=== PATIENT | female | born 1940 | race Caucasian/White ===

== ENCOUNTER → 2018-03-13 10:35 | Outpatient (CLI) | payer MEDICARE, SELFPAY ==
--- NOTE | 2018-03-13 | DI.MG.S_ITS ---
BILATERAL DIGITAL SCREENING MAMMOGRAM 3D/2D WITH CAD: 03/13/2018 CLINICAL: Routine screening. Comparison is made to exams dated: 02/20/2017 mammogram, 01/21/2016 mammogram, and 01/14/2015 mammogram - [facility]. The tissue of both breasts is heterogeneously dense. This may lower the sensitivity of mammography. Current study was also evaluated with a Computer Aided Detection (CAD) system. No significant masses, calcifications, or other findings are seen in either breast. There has been no significant interval change. IMPRESSION: NEGATIVE There is no mammographic evidence of malignancy. A 1 year screening mammogram is recommended. This exam was interpreted at Station ID: [id number]. NOTE: For mammograms, a report in lay terms will be sent to the patient. Approximately 15% of breast malignancies will not be visualized mammographically. In the management of a palpable breast mass, a negative mammogram must not discourage biopsy of a clinically suspicious lesion. Electronically Signed By: Jaycee caraballo/alexis:03/13/2018 14:00:25 letter sent: Normal Exam ACR BI-RADS Category 1: Negative 3341F
== END ==
PROVIDERS: PCP Family Medicine; Visit Provider Family Medicine
DX: Z12.31 Encounter for screening mammogram for malignant neoplasm of breast (principal)
CPT/HCPCS: 77063; 77067

== ENCOUNTER 2018-06-22 08:30 | Outpatient (RCR) | payer MEDICARE, SELFPAY | END 2018-08-03 08:55 | LOC: SP 08:30 | PROVIDERS: PCP Family Medicine; Visit Provider Otolaryngology | DX: R49.0 Dysphonia (principal); R13.10 Dysphagia, unspecified | CPT/HCPCS: 92507; 92520; 92524; 92526; 92610 ==

== ENCOUNTER → 2018-08-15 08:53 | Outpatient (CLI) | payer MEDICARE, SELFPAY ==
[2018-08-15 09:31] LABS: Add Manual Diff / Slide Review NO; Basophils Percent Auto 2.1 % (0-2); Eosinophils Percent Auto 3.3 % (2-4); Hematocrit 43.4 % (36-46); Lymphocytes Percent Auto 30.1 % (25-40); Mean Corpuscular HGB Conc 34.6 % (30-36); Mean Corpuscular Hemoglobin 35.6 PG (26-34); Mean Corpuscular Volume 102.9 fL (80-100); Monocytes Percent Auto 9.1 % (3-14); Neutrophils Absolute Auto 2600 /uL (3000-5900); Neutrophils Percent Auto 55.4 % (50-75); Platelet Count 130 X10^3/uL (150-400); Red Blood Cell Count 4.22 X10^6/uL (4.0-5.2); Red Cell Distribution Width 14.6 % (11.6-14.8); White Blood Cell Count 4.7 X10^3/uL (4.5-11.0)
[2018-08-15 09:40] LABS: BUN Creatinine Ratio 23.3 (6-22); Blood Urea Nitrogen 14 mg/dL (7-17); Calcium 9.3 mg/dL (8.4-10.2); Carbon Dioxide 28 mmol/L (22-32); Chloride 104 mmol/L (98-107); Cholesterol 184 mg/dL (140-199); Estimated Glomerular Filt Rate > 60.0 mL/min (>60); Glucose 97 mg/dL (80-110); HDL Cholesterol 83 mg/dL (40-60); HEMOLYSIS 43 (0-50); LDL Cholesterol Calculated 84 mg/dL (<100); Sodium 142 mmol/L (137-145); Triglycerides 85 mg/dL (35-150)
== END ==
PROVIDERS: Family Provider Family Medicine; PCP Family Medicine; Visit Provider Internal Medicine Cardiovascular Disease
DX: I10 Essential (primary) hypertension (principal)
CPT/HCPCS: 36415; 80048; 80061; 85025

== ENCOUNTER → 2019-03-14 10:36 | Outpatient (CLI) | payer MEDICARE, SELFPAY ==
--- NOTE | 2019-03-14 | DI.MG.S_ITS ---
BILATERAL DIGITAL SCREENING MAMMOGRAM 3D/2D WITH CAD: 03/14/2019 CLINICAL: Routine screening. Comparison is made to exams dated: 03/13/2018 mammogram, 02/20/2017 mammogram, and 01/21/2016 mammogram - [facility]. The tissue of both breasts is heterogeneously dense. This may lower the sensitivity of mammography. Current study was also evaluated with a Computer Aided Detection (CAD) system. No significant masses, calcifications, or other findings are seen in either breast. There has been no significant interval change. IMPRESSION: NEGATIVE There is no mammographic evidence of malignancy. A 1 year screening mammogram is recommended. This exam was interpreted at Station ID: [id number]. NOTE: For mammograms, a report in lay terms will be sent to the patient. Approximately 15% of breast malignancies will not be visualized mammographically. In the management of a palpable breast mass, a negative mammogram must not discourage biopsy of a clinically suspicious lesion. Electronically Signed By: Miguel vallejo/alexis:03/14/2019 11:13:08 letter sent: Normal Exam ACR BI-RADS Category 1: Negative 3341F
== END ==
PROVIDERS: PCP Family Medicine; Visit Provider Family Medicine
DX: Z12.31 Encounter for screening mammogram for malignant neoplasm of breast (principal)
CPT/HCPCS: 77063; 77067

== ENCOUNTER → 2019-04-25 14:41 | Outpatient (CLI) | payer MEDICARE, SELFPAY ==
--- NOTE | 2019-04-25 14:48 | DI.RAD.S_ITS ---
PROCEDURE: XR ABDOMEN 1V INDICATIONS: ABDOMINAL PAIN TECHNIQUE: One view of the abdomen acquired. COMPARISON: None. FINDINGS: Surgical changes and devices: None. Bowel: Bowel gas pattern is abnormal with a mild to moderate degree of colonic obstipation and several air fluid levels over the midabdomen which appeared nonspecific, potentially a manifestation of mild ileus but also potentially reactive to the colonic obstipation adjacent to the midabdomen level. No free air seen.. Soft tissues: No suspicious abdominal calcifications. Visualized solid organ contours appear normal in size. Bones: No suspicious bony lesions. IMPRESSION: Mild to moderate colonic obstipation as discussed, no definite acute disease. Depending on the clinical status followup by CT scanning with contrast may become necessary. Dictated by: Anish Sinha M.D. on 04/25/2019 at 15:31 Approved by: Anish Sinha M.D. on 04/25/2019 at 15:32
[2019-04-25 15:11] LABS: Add Manual Diff / Slide Review NO; Basophils Absolute Auto 100 /uL (0-100); Eosinophils Absolute Auto 100 /uL (0-450); Eosinophils Percent Auto 1.7 % (2-4); Hematocrit 40.4 % (36-46); Hemoglobin 14.1 g/dL (12.0-16.0); Lymphocytes Absolute Auto 1200 /uL (1100-4500); Lymphocytes Percent Auto 25.1 % (25-40); Mean Corpuscular HGB Conc 34.9 % (30-36); Mean Corpuscular Hemoglobin 35.7 PG (26-34); Mean Corpuscular Volume 102.4 fL (80-100); Monocytes Absolute Auto 500 /uL (0-900); Monocytes Percent Auto 10.2 % (3-14); Neutrophils Absolute Auto 2900 /uL (1500-7000); Platelet Count 131 X10^3/uL (150-400); Red Blood Cell Count 3.95 X10^6/uL (4.0-5.2); Red Cell Distribution Width 15.2 % (11.6-14.8); White Blood Cell Count 4.8 X10^3/uL (4.5-11.0)
[2019-04-25 15:22] LABS: Alanine Aminotransferase 23 IU/L (9-52); Albumin 4.3 g/dL (3.5-5.0); Albumin Globulin Ratio 1.6 (1.0-2.8); Alkaline Phosphatase 76 U/L (38-126); Aspartate Aminotransferase 32 IU/L (14-36); Bilirubin Total 0.5 mg/dL (0.2-1.3); Blood Urea Nitrogen 12 mg/dL (7-17); Calcium 9.7 mg/dL (8.4-10.2); Carbon Dioxide 29 mmol/L (22-32); Chloride 103 mmol/L (98-107); Estimated Glomerular Filt Rate > 60.0 mL/min (>60); Globulin 2.7 g/dL (1.7-4.1); Glucose 99 mg/dL (80-110); HEMOLYSIS < 15 (0-50); Potassium 4.3 mmol/L (3.4-5.1); Sodium 140 mmol/L (137-145)
[2019-04-26 01:38] LABS: Vitamin B12 468 pg/mL (239-931)
== END ==
PROVIDERS: PCP Family Medicine; Visit Provider Hospitalist
DX: R14.0 Abdominal distension (gaseous) (principal); D75.89 Other specified diseases of blood and blood-forming organs
CPT/HCPCS: 36415; 74018; 80053; 82607; 85025

== ENCOUNTER → 2019-04-29 11:33 | Outpatient (CLI) | payer MEDICARE, SELFPAY ==
[2019-04-29 14:41] LABS: Occult Blood 1 Negative (Negative); Occult Blood 2 Negative (Negative)
== END ==
PROVIDERS: PCP Family Medicine; Visit Provider Hospitalist
DX: R14.0 Abdominal distension (gaseous) (principal)
CPT/HCPCS: 82270

== ENCOUNTER → 2019-05-08 12:25 | Outpatient (CLI) | payer MEDICARE, SELFPAY ==
[2019-05-08 13:26] LABS: Alanine Aminotransferase 24 IU/L (9-52); Albumin 4.3 g/dL (3.5-5.0); Albumin Globulin Ratio 1.5 (1.0-2.8); Alkaline Phosphatase 80 U/L (38-126); Aspartate Aminotransferase 24 IU/L (14-36); Bilirubin Total 0.5 mg/dL (0.2-1.3); Blood Urea Nitrogen 18 mg/dL (7-17); Calcium 9.6 mg/dL (8.4-10.2); Carbon Dioxide 30 mmol/L (22-32); Chloride 102 mmol/L (98-107); Estimated Glomerular Filt Rate > 60.0 mL/min (>60); Globulin 2.8 g/dL (1.7-4.1); Glucose 84 mg/dL (80-110); HEMOLYSIS < 15 (0-50); Potassium 4.2 mmol/L (3.4-5.1); Sodium 141 mmol/L (137-145); Total Protein 7.1 g/dL (6.3-8.2)
== END ==
PROVIDERS: PCP Family Medicine; Visit Provider Hospitalist
DX: R10.9 Unspecified abdominal pain (principal)
CPT/HCPCS: 36415; 80053

== ENCOUNTER → 2019-05-10 08:39 | Outpatient (CLI) | payer MEDICARE, SELFPAY ==
--- NOTE | 2019-05-10 08:42 | DI.US.S_ITS ---
PROCEDURE: US ABDOMEN COMPLETE INDICATIONS: RUQ PAIN TECHNIQUE: Real-time scanning was performed of the abdominal and retroperitoneal organs, with image documentation. COMPARISON: [facility], CT, ABDOMEN/PELVIS WITH CONTRAST, 03/11/2013, 9:03. [facility], CT, ABDOMEN/PELVIS WITH CONTRAST, 03/20/2008, 12:54. [facility], US, ABDOMEN COMPLETE, 03/26/2008, 8:25. FINDINGS: Liver: Liver is normal in size and homogeneous in echotexture. Gallbladder: No findings of gallstones or sludge are seen. The gallbladder wall is not thickened, measuring 3 mm or less. An phrygian cap can again be seen. 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 No specific pericholecystic fluid is seen. The sonographic Silva sign is negative. Biliary ducts: Intrahepatic bile ducts are non-dilated. Extrahepatic bile duct caliber measures 6 mm. Normal is 6-7 mm or less in diameter, or 10 mm or less post-cholecystectomy. Pancreas: Visualized portions of the pancreas are sonographically normal. Spleen: Spleen is normal in size and homogeneous in echotexture. Kidneys: Kidneys are normal in size and echotexture. Right kidney measures 11.6 cm long; left kidney measures 12.3 cm long. No hydronephrosis or nephrolithiasis. No solid masses. Aorta: Visualized aorta is normal in caliber at less than 3 cm. Iliacs: Proximal common iliac arteries are normal in caliber at less than 2.5 cm. IVC: Intrahepatic inferior vena cava is patent. Miscellaneous: No free abdominal fluid. IMPRESSION: The gallbladder demonstrates a normal sonographic appearance, with incidental note again made of a phrygian cap. No biliary dilatation is seen. Dictated by: Jorge Arriola M.D. on 05/10/2019 at 9:01 Approved by: Jorge Arriola M.D. on 05/10/2019 at 9:03
== END ==
PROVIDERS: PCP Family Medicine; Visit Provider Hospitalist
DX: R10.11 Right upper quadrant pain (principal)
CPT/HCPCS: 76700

== ENCOUNTER → 2019-05-21 11:03 | Outpatient (CLI) | payer MEDICARE, SELFPAY ==
[2019-05-21 11:47] LABS: Add Manual Diff / Slide Review NO; Basophils Absolute Auto 100 /uL (0-100); Basophils Percent Auto 2.1 % (0-2); Eosinophils Absolute Auto 200 /uL (0-450); Eosinophils Percent Auto 3.8 % (2-4); Hematocrit 40.9 % (36-46); Hemoglobin 14.1 g/dL (12.0-16.0); Lymphocytes Absolute Auto 1300 /uL (1100-4500); Lymphocytes Percent Auto 27.3 % (25-40); Mean Corpuscular HGB Conc 34.5 % (30-36); Mean Corpuscular Hemoglobin 35.3 PG (26-34); Mean Corpuscular Volume 102.2 fL (80-100); Monocytes Absolute Auto 500 /uL (0-900); Monocytes Percent Auto 11.9 % (3-14); Neutrophils Absolute Auto 2500 /uL (1500-7000); Neutrophils Percent Auto 54.9 % (50-75); Platelet Count 130 X10^3/uL (150-400); Red Blood Cell Count 4.01 X10^6/uL (4.0-5.2); Red Cell Distribution Width 14.8 % (11.6-14.8); White Blood Cell Count 4.6 X10^3/uL (4.5-11.0)
[2019-05-21 12:25] LABS: Alanine Aminotransferase 21 IU/L (9-52); Albumin 4.2 g/dL (3.5-5.0); Albumin Globulin Ratio 1.6 (1.0-2.8); Alkaline Phosphatase 76 U/L (38-126); Aspartate Aminotransferase 27 IU/L (14-36); Bilirubin Total 0.5 mg/dL (0.2-1.3); Blood Urea Nitrogen 18 mg/dL (7-17); Calcium 9.4 mg/dL (8.4-10.2); Carbon Dioxide 26 mmol/L (22-32); Chloride 103 mmol/L (98-107); Estimated Glomerular Filt Rate > 60.0 mL/min (>60); Globulin 2.6 g/dL (1.7-4.1); Glucose 93 mg/dL (80-110); HEMOLYSIS < 15 (0-50); Potassium 4.3 mmol/L (3.4-5.1); Sodium 139 mmol/L (137-145); Total Protein 6.8 g/dL (6.3-8.2)
== END ==
PROVIDERS: PCP Family Medicine; Visit Provider Hospitalist
DX: R10.9 Unspecified abdominal pain (principal)
CPT/HCPCS: 36415; 80053; 85025

== ENCOUNTER → 2019-05-24 10:02 | Outpatient (CLI) | payer MEDICARE, SELFPAY ==
--- NOTE | 2019-05-24 10:03 | DI.CT.S_ITS ---
PROCEDURE: CT ABDOMEN PELVIS W CON INDICATIONS: abdominal pain TECHNIQUE: After the administration of oral and intravenous contrast, 5 mm thick sections acquired from the diaphragms to the symphysis. 5 mm thick coronal and sagittal reformats were performed. For radiation dose reduction, the following was used: automated exposure control, adjustment of mA and/or kV according to patient size. COMPARISON: [facility], CT, ABDOMEN/PELVIS WITH CONTRAST, 03/11/2013, 9:03. [facility], CT, ABDOMEN/PELVIS WITH CONTRAST, 01/07/2012, 4:17. FINDINGS: Image quality: Excellent. A ABDOMEN: Lung bases: Lung bases are clear. Heart size is normal. Solid organs: Liver is normal in size and enhancement. Gallbladder is contracted. Biliary system is non-dilated. Pancreas enhances normally. Spleen is normal in size and enhancement. No adrenal nodules. Kidneys are normal in size and enhancement, without hydronephrosis. Peritoneum and bowel: Stomach, small bowel, and colon loops are normal in caliber and wall thickness. No free fluid or air. There is generalized colonic obstipation, right greater than left, and extending to the transverse colon. Nodes and vessels: No retroperitoneal or mesenteric adenopathy. Aorta and inferior vena cava are normal in caliber. Miscellaneous: No ventral hernias. PELVIS: Genitourinary: Bladder wall thickness is normal. Miscellaneous: No inguinal hernias or adenopathy. Right greater than left colonic obstipation extends from the abdomen into the pelvis. Bones: No suspicious bony lesions. No vertebral body compression fractures. IMPRESSION: No underlying infection or neoplasm is found. There is relatively prominent colonic obstipation extending from the abdomen into the pelvis and greater on the right than the left. There is no suspicion for focal intestinal obstruction or perforation. Dictated by: Anish Sinha M.D. on 05/24/2019 at 12:03 Approved by: Anish Sinha M.D. on 05/24/2019 at 12:05
== END ==
PROVIDERS: PCP Family Medicine; Referring Provider Physician Assistant; Visit Provider Hospitalist
DX: R10.9 Unspecified abdominal pain (principal); K59.00 Constipation, unspecified
CPT/HCPCS: 74177; Q9967

== ENCOUNTER → 2020-03-21 10:47 | Outpatient (CLI) | payer MEDICARE, SELFPAY ==
--- NOTE | 2020-03-21 | DI.MG.S_ITS ---
BILATERAL DIGITAL SCREENING MAMMOGRAM 3D/2D WITH CAD: 03/21/2020 CLINICAL: Routine screening. Comparison is made to exams dated: 03/14/2019 mammogram, 03/13/2018 mammogram, and 02/20/2017 mammogram - [facility]. The tissue of both breasts is heterogeneously dense. This may lower the sensitivity of mammography. Current study was also evaluated with a Computer Aided Detection (CAD) system. No significant masses, calcifications, or other findings are seen in either breast. There has been no significant interval change. IMPRESSION: NEGATIVE There is no mammographic evidence of malignancy. A 1 year screening mammogram is recommended. This exam was interpreted at Station ID: [id number]. NOTE: For mammograms, a report in lay terms will be sent to the patient. Approximately 15% of breast malignancies will not be visualized mammographically. In the management of a palpable breast mass, a negative mammogram must not discourage biopsy of a clinically suspicious lesion. Electronically Signed By: Miguel vallejo/alexis:03/23/2020 08:14:33 letter sent: Normal Exam ACR BI-RADS Category 1: Negative 3341F
== END ==
PROVIDERS: PCP Family Medicine; Referring Provider Family Medicine; Visit Provider Family Medicine
DX: Z12.31 Encounter for screening mammogram for malignant neoplasm of breast (principal)
CPT/HCPCS: 77063; 77067

== ENCOUNTER → 2020-05-19 16:16 | Outpatient (CLI) | payer MEDICARE, SELFPAY ==
[2020-05-19 16:37] LABS: Add Manual Diff / Slide Review NO; Basophils Absolute Auto 100 /uL (0-100); Basophils Percent Auto 1.2 % (0-2); Eosinophils Absolute Auto 100 /uL (0-450); Eosinophils Percent Auto 1.8 % (2-4); Hematocrit 41.9 % (36-46); Hemoglobin 13.8 g/dL (12.0-16.0); Lymphocytes Absolute Auto 1400 /uL (1100-4500); Mean Corpuscular Hemoglobin 34.3 PG (26-34); Mean Corpuscular Volume 103.7 fL (80-100); Monocytes Absolute Auto 400 /uL (0-900); Monocytes Percent Auto 7.6 % (3-14); Neutrophils Absolute Auto 3700 /uL (1500-7000); Neutrophils Percent Auto 65.4 % (50-75); Platelet Count 128 X10^3/uL (150-400); Red Blood Cell Count 4.04 X10^6/uL (4.0-5.2); White Blood Cell Count 5.7 X10^3/uL (4.5-11.0)
[2020-05-19 16:55] LABS: HEMOLYSIS < 15 (0-50); Potassium 3.8 mmol/L (3.4-5.1)
[2020-05-19 16:56] LABS: Alanine Aminotransferase 22 IU/L (<35); Albumin 4.1 g/dL (3.5-5.0); Albumin Globulin Ratio 1.3 (1.0-2.8); Alkaline Phosphatase 88 U/L (38-126); Aspartate Aminotransferase 29 IU/L (14-36); BUN Creatinine Ratio 26.7 (6-22); Bilirubin Total 0.4 mg/dL (0.2-1.3); Blood Urea Nitrogen 16 mg/dL (7-17); Calcium 9.2 mg/dL (8.4-10.2); Carbon Dioxide 31 mmol/L (22-32); Chloride 103 mmol/L (98-107); Estimated Glomerular Filt Rate > 60.0 mL/min (>60); Globulin 3.2 g/dL (1.7-4.1); Glucose 92 mg/dL (80-110); Sodium 138 mmol/L (137-145); Total Protein 7.3 g/dL (6.3-8.2)
[2020-05-19 17:27] LABS: TSH w/ Reflex to FT4 1.27 uIU/mL (0.47-4.68)
== END ==
PROVIDERS: PCP Family Medicine; Referring Provider Family Medicine; Visit Provider Family Medicine
DX: R53.83 Other fatigue (principal)
CPT/HCPCS: 36415; 80053; 84443; 85025

== ENCOUNTER → 2020-08-04 09:31 | Outpatient (CLI) | payer MEDICARE, SELFPAY ==
[2020-08-05 15:37] LABS: Deamidated Gliadin Ab IgA 5 units (0-19); Deamidated Gliadin Ab IgG 3 units (0-19); Immunoglobulin A,Qn 190 mg/dL (64-422); t-Transglutaminase IgA <2 U/mL (0-3)
== END ==
PROVIDERS: PCP Family Medicine; Referring Provider Internal Medicine Gastroenterology; Visit Provider Internal Medicine Gastroenterology
DX: R14.0 Abdominal distension (gaseous) (principal)
CPT/HCPCS: 36415; 82784; 83516

== ENCOUNTER → 2020-11-17 11:05 | Outpatient (CLI) | payer MEDICARE, SELFPAY ==
--- NOTE | 2020-11-17 11:06 | DI.RAD.S_ITS ---
PROCEDURE: XR T AND L SPINE 2 TO 3 VIEWS INDICATIONS: Thoracolumbar junction spine discomfort TECHNIQUE: 2 views acquired of the thoracolumbar spine. COMPARISON: [facility], CT, CT ABDOMEN PELVIS WITH CONTRAST, 02/18/2020, 10:06. MR, L-SPINE WITHOUT CONTRAST, 06/24/2009, 15:02. FINDINGS: Bones: No acute fractures or dislocations. Ptzd-cu-oxdtlpue S-shaped scoliosis. There is degenerative disc disease, sezeezgz-xh-wajquj at L1-L2, L2-L3 and L3-L4, mild at other levels. Eazlvfly-gi-wrifhe facet arthropathy at L 4-L5 and L5-S1. Visualized inferior ribs appear intact. No suspicious bony lesions. Soft tissues: No suspicious soft tissue calcifications. There is a lead-lesscardiac pacing device. IMPRESSION: 1. Scoliosis. 2. Degenerative disc and facet disease in lumbar spine. Dictated by: Abdulaziz Byrd M.D. on 11/17/2020 at 12:43 Approved by: Abdulaziz Byrd M.D. on 11/17/2020 at 12:52
== END ==
PROVIDERS: PCP Family Medicine; Referring Provider Family Medicine; Visit Provider Family Medicine
DX: M54.5 Low back pain (principal); M41.86 Other forms of scoliosis, lumbar region; M51.36 Other intervertebral disc degeneration, lumbar region; M47.816 Spondylosis without myelopathy or radiculopathy, lumbar region; M47.817 Spondylosis without myelopathy or radiculopathy, lumbosacral region
CPT/HCPCS: 72082

== ENCOUNTER → 2021-05-05 11:26 | Outpatient (CLI) | payer MEDICARE, SELFPAY ==
--- NOTE | 2021-05-05 | DI.MG.S_ITS ---
BILATERAL DIGITAL SCREENING MAMMOGRAM 3D/2D WITH CAD: 05/05/2021 CLINICAL: Routine screening. Comparison is made to exams dated: 03/21/2020 mammogram, 03/14/2019 mammogram, and 03/13/2018 mammogram - [facility]. The tissue of both breasts is heterogeneously dense. This may lower the sensitivity of mammography. Current study was also evaluated with a Computer Aided Detection (CAD) system. No significant masses, calcifications, or other findings are seen in either breast. There has been no significant interval change. IMPRESSION: NEGATIVE There is no mammographic evidence of malignancy. A 1 year screening mammogram is recommended. This exam was interpreted at Station ID: [id number]. NOTE: For mammograms, a report in lay terms will be sent to the patient. Approximately 15% of breast malignancies will not be visualized mammographically. In the management of a palpable breast mass, a negative mammogram must not discourage biopsy of a clinically suspicious lesion. Electronically Signed By: Gisell dasilva/alexis:05/05/2021 15:10:38 letter sent: Normal Exam ACR BI-RADS Category 1: Negative 3341F
== END ==
PROVIDERS: PCP Family Medicine; Referring Provider Family Medicine; Visit Provider Family Medicine
DX: Z12.31 Encounter for screening mammogram for malignant neoplasm of breast (principal)
CPT/HCPCS: 77063; 77067

== ENCOUNTER → 2021-06-09 13:42 | Outpatient (CLI) | payer MEDICARE, SELFPAY ==
--- NOTE | 2021-06-09 13:48 | DI.MRI.S_ITS ---
PROCEDURE: MR LUMBAR SPINE WO CON INDICATIONS: Low back pain, unspecified TECHNIQUE: Noncontrast sagittal T1 spin echo and T2 fast echo, sagittal STIR, axial T1 and T2 fast spin echo through the lumbar spine. In cases with scoliosis, additional coronal T2 fast spin echo may be performed. COMPARISON: None. FINDINGS: There is a mild S-shaped scoliosis in the lumbar spine. Right lateral listhesis of L3 with respect to L4 measuring approximately 1 cm. Retrolisthesis of L2 with respect L3 measuring approximately 3 mm. Mild anterior wedging of the L1 vertebral body without associated edema. Vertebral body heights otherwise maintained. No suspicious focal marrow signal abnormality. Discogenic marrow edema at the opposing endplates of L3-L4 and to a lesser degree at L1-L2. Normal position and appearance of the conus. Prevertebral and paraspinous soft tissues are within normal limits. The included unenhanced retroperitoneal visceral structures demonstrate no acute finding. T12-L1: No spinal canal or neural foraminal stenosis. L1-L2: No spinal canal or neural foraminal stenosis. L2-L3: Retrolisthesis of L2 flattens the ventral thecal sac with mild displacement of the descending L3 nerve roots in both subarticular zones. Mild neural foraminal narrowing, left greater than right, due to foraminal components of a diffuse disc bulge and facet hypertrophy. L3-L4: Disc bulge flattens the ventral thecal sac without significant mass effect upon the traversing L4 nerve roots. Foraminal components of the disc bulge and facet hypertrophy combine to produce moderate left and mild right neural foraminal stenosis. L4-L5: Diffuse disc bulge with a superimposed broad-based posterior disc protrusion flattens the ventral thecal sac. Mild displacement of the descending L5 nerve roots within both subarticular zones. Foraminal components of the disc bulge and facet hypertrophy contribute to mild bilateral neural foraminal stenosis. L5-S1: Diffuse disc bulge without mass effect upon the traversing S1 nerve roots. No significant neural foraminal narrowing. IMPRESSION: Overall mild multilevel multifactorial degenerative changes with no convincing evidence of focal nerve root impingement. Marrow edema at the opposing L3-L4 and L1-L2 endplates represent potential sources of nonradicular axial back pain along with multilevel facet hypertrophy. Dictated by: Mitesh Young M.D. on 06/09/2021 at 15:44 Approved by: Mitesh Young M.D. on 06/09/2021 at 15:48
== END ==
PROVIDERS: PCP Family Medicine; Referring Provider Physical Medicine & Rehabilitation Pain Medicine; Visit Provider Physical Medicine & Rehabilitation Pain Medicine
DX: M54.50 Low back pain, unspecified (principal); R93.7 Abnormal findings on diagnostic imaging of other parts of musculoskeletal system
CPT/HCPCS: 72148

== ENCOUNTER 2021-06-18 11:51 | Emergency (ER) | payer MEDICARE, SELFPAY ==
[2021-06-18] VITALS (12 sets, daily range): BP systolic 130–166; BP diastolic 63–79; PULSE 67–84; RESP 14–25; TEMP 36.6; O2SAT 73–100; BMI 23.6
--- NOTE | 2021-06-18 12:04 | DI.RAD.S_ITS ---
PROCEDURE: XR CHEST 1V INDICATIONS: chest pain TECHNIQUE: One view of the chest was acquired. COMPARISON: [facility], , CHEST 2 VIEW, 04/19/2017, 11:06. FINDINGS: Surgical changes and devices: None. Lungs and pleura: There is hyperinflation of the lungs with flattening of the hemidiaphragms compatible with COPD. There are linear opacities in the left lung base likely representing scarring or atelectasis. No acute consolidation. No pleural effusions or pneumothorax. Mediastinum: Mediastinal contours appear normal. Heart size is normal. Bones and chest wall: No suspicious bony lesions. Overlying soft tissues appear unremarkable. IMPRESSION: 1. No definite acute cardiopulmonary disease. 2. Probable atelectasis or scarring in the left lung base. 3. Findings compatible with COPD redemonstrated. Dictated by: Liborio Greene M.D. on 06/18/2021 at 13:57 Approved by: Liborio Greene M.D. on 06/18/2021 at 14:00
[2021-06-18 12:17] LABS: Add Manual Diff / Slide Review NO; Basophils Absolute Auto 100 /uL (0-100); Basophils Percent Auto 1.6 % (0-2); Eosinophils Absolute Auto 100 /uL (0-450); Eosinophils Percent Auto 1.5 % (2-4); Hematocrit 43.3 % (36-46); Hemoglobin 14.5 g/dL (12.0-16.0); Lymphocytes Absolute Auto 1500 /uL (1100-4500); Lymphocytes Percent Auto 25.1 % (25-40); Mean Corpuscular HGB Conc 33.6 % (30-36); Mean Corpuscular Hemoglobin 35.2 PG (26-34); Monocytes Absolute Auto 600 /uL (0-900); Monocytes Percent Auto 9.1 % (3-14); Neutrophils Absolute Auto 3800 /uL (1500-7000); Neutrophils Percent Auto 62.7 % (50-75); Platelet Count 129 X10^3/uL (150-400); Red Blood Cell Count 4.12 X10^6/uL (4.0-5.2); Red Cell Distribution Width 15.4 % (11.6-14.8); White Blood Cell Count 6.1 X10^3/uL (4.5-11.0)
[2021-06-18 12:25] LABS: Alanine Aminotransferase 26 IU/L (<35); Albumin 4.7 g/dL (3.5-5.0); Albumin Globulin Ratio 1.6 (1.0-2.8); Alkaline Phosphatase 84 U/L (38-126); Aspartate Aminotransferase 34 IU/L (14-36); BUN Creatinine Ratio 30.2 (6-22); Bilirubin Total 0.6 mg/dL (0.2-1.3); Blood Urea Nitrogen 16 mg/dL (7-17); Calcium 9.7 mg/dL (8.4-10.2); Carbon Dioxide 27 mmol/L (22-32); Chloride 103 mmol/L (98-107); Creatine Kinase 109 U/L (30-135); Estimated Glomerular Filt Rate > 60.0 mL/min (>60); Globulin 2.9 g/dL (1.7-4.1); Glucose 96 mg/dL (80-110); HEMOLYSIS < 15 (0-50); Lipase 84 U/L (23-300); Potassium 4.2 mmol/L (3.4-5.1); Sodium 139 mmol/L (137-145); Total Protein 7.6 g/dL (6.3-8.2)
[2021-06-18 12:37] LABS: Troponin I < 0.012 ng/mL (0.01-0.034)
[2021-06-18 12:40] LABS: CKMB % Relative Index 1.1 % (1.5-5.0); Creatine Kinase MB 1.23 ng/mL (<2.37)
--- NOTE | 2021-06-18 14:42 | PC.NURSE ---
Patient reports that according to her [employer] that she does not have heart failure and a vague report of Afib. Has been having chest fullness with SOB at rest, irregular beats, and palpitations for last month but acutely worse today.
--- NOTE | 2021-06-18 17:31 | ED_ITS ---
HPI - Chest Pain General Chief Complaint: Chest Pain Stated Complaint: Heavy Chest,SOB, Light Headed Time Seen by Provider: 06/18/21 17:31 Source: patient Mode of arrival: Ambulatory Limitations: no limitations History of Present Illness HPI narrative: 81-year-old woman with a history of hypertension, anxiety and in somnia presents with exertional dyspnea, chest pain and a sense that she is having more frequent PVCs today. She does not describe overt pain but does note that the exertional dyspnea particularly when walking up stairs has been more noticeable in the last month. She does not describe orthopnea however she has sleep apnea so tends to sleep on her side. She has not had any creased lower extremity edema. She does note that she has a chronic cough that she has been dealing with for a number of years and today is having recurrent clearing of her throat consistent with her complaints of postnasal drip. She has had no fevers she has chronic diffuse abdominal pain from chronic obstipation (from which she has found no significant relief despite multiple consultations with different gastroenterologists). Related Data Home Medications Medication Instructions Recorded Confirmed polyvinyl alcohol-povidone 0.5 1 drp OPHTH PRN PRN #0 03/09/17 11/17/20 %-0.6 % eye drops (Artificial Tears (polyvinyl alcohol/povidone)) sodium chloride 0.65 % nasal spray 67.5 ml NS HSP PRN #0 03/09/17 11/17/20 aerosol (Saline Nose) sodium chloride 2 % eye drops 15 ml HS #0 03/09/17 11/17/20 (Ifeoma 128) multivitamin (Multiple Vitamins) 2 tab PO QWEEK #0 tab 02/26/19 11/17/20 magnesium 200 mg tablet 400 mg PO QDAY #0 tab 04/25/19 11/17/20 cholecalciferol (vitamin D3) 50 50 mcg PO DAILY 03/11/20 11/17/20 mcg (2,000 unit) capsule melatonin 5 mg capsule mg PO 03/11/20 11/17/20 Previous Rx's Medication Instructions Recorded nortriptyline 10 mg capsule 10 mg PO BEDTIME #90 cap 02/26/19 alprazolam 0.5 mg tablet 0.5 mg PO BEDTIME PRN #30 tab 05/19/20 lisinopril 10 mg tablet 10 mg PO DAILY #90 tab 08/10/20 oxybutynin chloride 5 mg tablet 5 mg PO BID #180 tab 11/26/20 Allergies Allergy/AdvReac Type Severity Reaction Status Date / Time antipyrine [ANTIPYRINE] Allergy Mild Verified 06/18/21 11:56 clavulanic acid Allergy Mild Verified 06/18/21 11:56 [CLAVULANIC ACID] fluconazole [FLUCONAZOLE] Allergy Mild HIVES Verified 06/18/21 11:56 dexamethasone [From Maxitrol] Allergy Unknown Verified 06/18/21 11:56 polymyxin B [From Maxitrol] Allergy Unknown Verified 06/18/21 11:56 benzocaine [From Auralgan] AdvReac Severe Blisters Verified 06/18/21 11:56 glycerin [From Auralgan] AdvReac Severe Blisters Verified 06/18/21 11:56 Sulfa (Sulfonamide AdvReac Severe HEADACHE,, Verified 06/18/21 11:56 Antibiotics) EYES [SULFA (SULFONAMIDE SWOLLEN ANTIBIOTICS)] hydrocodone [HYDROCODONE] AdvReac Mild HEADACHE Verified 06/18/21 11:56 meperidine [MEPERIDINE] AdvReac Mild VOMITTING Verified 06/18/21 11:56 neomycin [NEOMYCIN] AdvReac Mild PUFFY EYES Verified 06/18/21 11:56 Review of Systems Review of Systems Narrative: Remainder of complete review of systems is otherwise unremarkable except for that included in the HPI. 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 Osteoarthritis of right hip Otitis externa Partial retinal detachment of left eye Raynaud's syndrome Recurrent cold sores Scoliosis Shingles Sleep apnea TMJ dysfunction Urinary incontinence, urge Vaginal atrophy Surgical History History of bladder suspension procedure (1997) History of cataract removal with insertion of prosthetic lens (01/2016) History of colonoscopy (05/15/06) History of colonoscopy (04/30/08) History of colonoscopy (01/06/11) History of colonoscopy with polypectomy (1997) History of colonoscopy with polypectomy (2002) History of inguinal hernia repair (01/07/12) History of left inguinal hernia repair (02/25/16) History of mandibular surgery (10/21/09) History of mandibular surgery (1999) History of nasal septoplasty (2003) History of rectal surgery (1999) History of removal of cyst (1960) History of surgical procedure on eye proper using laser (2010) History of third molar tooth extraction (1963) Status post dilation and curettage (1965) Status post epidural steroid injection (2008) Status post hysterectomy with oophorectomy (1990) Status post left foot surgery (1993) Status post left foot surgery (09/01/10) Status post left foot surgery (12/27/13) Status post nasal surgery (1999) Status post nasal surgery (2004) Status post tonsillectomy and adenoidectomy (~1946) Social History Smoking Status: Never smoker Smoking Status: Never smoker alcohol intake frequency: holidays/special occasions only Substance Use Type: does not use Exam Narrative Exam Narrative: General: Healthy appearing, in no acute distress. Able to give a complete and coherent history. Well-nourished well-developed HEENT: Moist mucous membranes, normal sclera with reactive pupils, mild posterior pharynx erythema and cobblestoning Neck: No JVD, supple Respiratory: Lungs are clear to auscultation, no wheezing no rales no rhonchi. Full and symmetrical air movement. She does have a mild dry cough and does continually clear her throat. Cardiac: Regular rate and rhythm, occasional PVC noted on telemetry, murmurs no bruits Abdomen: Soft, nontender, good bowel tones, no flank pain Skin: Warm and dry, no rashes Neurologic: Grossly neurologically intact with no obvious asymmetries or abn ormalities Extremities: No trauma, well perfused, no edema Psych: Cooperative, appropriate insight and affect Initial Vital Signs Initial Vital Signs: Vital Signs Temperature 97.8 F 06/18/21 11:56 Pulse Rate 84 06/18/21 11:56 Respiratory Rate 14 06/18/21 11:56 Blood Pressure 140/69 06/18/21 11:56 Pulse Oximetry 98 06/18/21 11:56 Course Orders Ordered: ED Orders 06/18/21 12:00 Complete Blood Count AUTO DIFF Stat Comprehensive Metabolic Panel Stat Lipase Stat Troponin & CK Cardiac Panel Stat 06/18/21 12:04 XR chest 1V Stat EKG-12 Lead Stat Vital Signs Vital signs: Vital Signs - 8 hr 06/18/21 11:56 06/18/21 14:31 06/18/21 14:32 Temperature 97.8 F Pulse Rate 84 67 72 Respiratory Rate 14 18 Blood Pressure 140/69 166/79 H Pulse Oximetry 98 73 L 98 06/18/21 14:36 06/18/21 15:00 06/18/21 15:30 Temperature Pulse Rate 74 69 70 Respiratory Rate 16 18 15 Blood Pressure 154/78 H 130/72 133/70 Pulse Oximetry 100 100 97 06/18/21 16:02 06/18/21 16:03 06/18/21 16:30 Temperature Pulse Rate 81 79 77 Respiratory Rate 22 19 17 Blood Pressure 163/75 H Pulse Oximetry 96 99 98 06/18/21 17:00 Temperature Pulse Rate 74 Respiratory Rate 19 Blood Pressure 141/63 H Pulse Oximetry 98 MDM - Chest Pain Lab Data Result diagrams: 06/18/21 12:00 06/18/21 12:00 Labs: Lab Results 06/18/21 06/18/21 Range/Units 12:00 12:00 WBC 6.1 (4.5-11.0) X10^3/uL RBC 4.12 (4.0-5.2) X10^6/uL Hgb 14.5 (12.0-16.0) g/dL Hct 43.3 (36-46) % MCV 105.0 H (80-100) fL MCH 35.2 H (26-34) PG MCHC 33.6 (30-36) % RDW 15.4 H (11.6-14.8) % Plt Count 129 L (150-400) X10^3/uL Neut % (Auto) 62.7 (50-75) % Lymph % (Auto) 25.1 (25-40) % Gila % (Auto) 9.1 (3-14) % Eos % (Auto) 1.5 L (2-4) % Baso % (Auto) 1.6 (0-2) % Neut # (Auto) 3800 (5717-0994) /uL Lymph # (Auto) 1500 (8587-7837) /uL Gila # (Auto) 600 (0-900) /uL Eos # (Auto) 100 (0-450) /uL Baso # (Auto) 100 (0-100) /uL Sodium 139 (137-145) mmol/L Potassium 4.2 (3.4-5.1) mmol/L Chloride 103 (98-107) mmol/L Carbon Dioxide 27 (22-32) mmol/L BUN 16 (7-17) mg/dL Creatinine 0.53 (0.52-1.04) mg/dL Estimated GFR > 60.0 (>60) mL/min BUN/Creatinine Ratio 30.2 H (6-22) Glucose 96 (80-110) mg/dL Calcium 9.7 (8.4-10.2) mg/dL Total Bilirubin 0.6 (0.2-1.3) mg/dL AST 34 (14-36) IU/L ALT 26 (<35) IU/L Alkaline Phosphatase 84 (38-126) U/L Total Creatine Kinase 109 (30-135) U/L CK-MB (CK-2) 1.23 (<2.37) ng/mL CK-MB (CK-2) Rel Index 1.1 L (1.5-5.0) % Troponin I < 0.012 (0.01-0.034) ng/mL Total Protein 7.6 (6.3-8.2) g/dL Albumin 4.7 (3.5-5.0) g/dL Globulin 2.9 (1.7-4.1) g/dL Albumin/Globulin Ratio 1.6 (1.0-2.8) Lipase 84 (23-300) U/L Imaging Data Chest x-ray: Radiologist's Impression: FINDINGS:? ? Surgical changes and devices:? None.? ? Lungs and pleura:? There is hyperinflation of the lungs with flattening of the hemidiaphragms compatible with COPD.? There are linear opacities in the left lung base likely representing scarring or atelectasis.? No acute consolidation.? No pleural effusions or pneumothorax.? ? Mediastinum:? Mediastinal contours appear normal.? Heart size is normal.? ? Bones and chest wall:? No suspicious bony lesions.? Overlying soft tissues appear unremarkable.? ? IMPRESSION:? ? 1. No definite acute cardiopulmonary disease. ? 2. Probable atelectasis or scarring in the left lung base. ? 3. Findings compatible with COPD redemonstrated. ? ? Dictated by: Liborio Greene M.D. on 06/18/2021 at 13:57? ?? MDM Narrative Medical decision making narrative: 81-year-old woman with complaints of exertional dyspnea and frequent PVCs today also noticing some central chest pressure without actual pain. She is also noticing frequent PVCs, she has had increased postnasal drip and is clearing her throat frequently and also deals with a chronic cough. Her chest x-ray suggested diagnosis of COPD 1 that I do not think has been officially made for her. I believe that that does deserve more workup as an outpatient but at this time she is not showing any signs or symptoms of congestive heart failure, pulmonary embolism, acute asthma, acute coronary syndrome or myocardial infarction or any type of infection. All of the se findings are reviewed with her. She is having frequent PVCs of which she is aware. No signs of other more concerning pathology. She is safe for home discharge Discharge Plan Departure Patient Disposition: Home Clinical Impression: Exertional dyspnea, Post-nasal drip, Chronic cough, Frequent unifocal PVCs Instructions: DI for Shortness of Breath, DI for Premature Ventricular Beats Activity Restrictions/Additional Instructions: Thank you for coming in today I am sorry that you continue to have this chest tightness and shortness of breath. With your workup today, I did not find a life-threatening explanation for this. There is no evidence of heart attack or heart attack like syndrome. You are having PVCs and that is the irregularity you are noticing. This is not a life-threatening diagnosis. I am finding no evidence of pneumonia, collapsed lung or infection It may be that your postnasal drip is contributing to your chronic cough and together they are contributing to your exertional dyspnea. I would recommend that you follow-up with Dr. Staton to see if he has any suggestions regarding additional outpatient lung workup. Similarly, please keep your routine appointment with your resource management planner. If you have symptoms worsen or your developing new issues, please feel free to return to the emergency department Prescriptions: No Action sodium chloride [Saline Nose] 45 ML aerosol,spray 67.5 ml NS HSP PRNQty: 0 RF: 0 polyvinyl alcohol-povidone [Artificial Tears(pvalch-povid)] 15 ML drops 1 drp OPHTH PRN PRNQty: 0 RF: 0 sodium chloride [Ifeoma 128] 15 ML drops 15 ml HS Qty: 0 RF: 0 multivitamin [Multiple Vitamins] tablet 2 tab PO QWEEK Qty: 0 RF: 0 magnesium 200 mg tablet 400 mg PO QDAY Qty: 0 RF: 0 lisinopril 10 mg tablet 10 mg PO DAILY Qty: 90 RF: 2 oxybutynin chloride 5 mg tablet 5 mg PO BID Qty: 180 RF: 2 alprazolam 0.5 mg tablet 0.5 mg PO BEDTIME PRN (Reason: sleep) Qty: 30 RF: 2 melatonin 5 mg capsule PO RF: 0 cholecalciferol (vitamin D3) 50 mcg (2,000 unit) capsule 50 mcg PO DAILY RF: 0 nortriptyline 10 mg capsule 10 mg PO BEDTIME Qty: 90 RF: 3 Referrals: Chad Staton, [Primary Care Provider] -
== END 2021-06-18 18:19 | disposition home or self-care (01) ==
PROVIDERS: Emergency Provider Emergency Medicine; PCP Family Medicine
DX: R06.09 Other forms of dyspnea (principal); R09.82 Postnasal drip; R05.3 Chronic cough; I49.3 Ventricular premature depolarization; R07.89 Other chest pain
CPT/HCPCS: 36415; 71045; 80053; 82550; 82553; 83690; 84484; 85025; 93005; 93010; 99283; 99284

== ENCOUNTER → 2021-08-11 13:59 | Outpatient (CLI) | payer MEDICARE, SELFPAY ==
[2021-08-11 15:13] LABS: COVID19 -Nasal RAPID Negative (Negative)
== END ==
PROVIDERS: PCP Family Medicine; Referring Provider Internal Medicine; Visit Provider Internal Medicine
DX: Z20.822 Contact with and (suspected) exposure to COVID-19 (principal)
CPT/HCPCS: 87635; C9803

== ENCOUNTER → 2021-08-12 08:46 | Outpatient (CLI) | payer MEDICARE, SELFPAY ==
--- NOTE | 2021-08-18 10:12 | PM.PFT.1 ---
Pulmonary Function Test Referral & Results Date Patient Seen: 08/12/21 Requesting provider: Shell Alvarez Results: The spirometry demonstrates an FVC of 3.99 L which is 128% of predicted. The FEV1 was measured at 2.83 L which is 121% of predicted. The FEV1/FVC ratio was 71 which is 95% of predicted. Following the administration of bronchodilator there was a 32% improvement in FEF 25-75% Lung volumes show an SVC of 3.89 L which is 127% of predicted. The diffusing capacity was measured at 15.25 which is 51% of predicted. No hemoglobin value was provided, so no correction for potential anemia could be made, if appropriate. The maximum voluntary ventilation was normal Interpretation: This study demonstrates normal spirometry but reduced diffusing capacity suggesting disease at the capillary alveolar level Compared to PFTs performed in April 2017, diffusing capacity was normal on previous study as was spirometry so this is significant change from previous
== END ==
PROVIDERS: PCP Family Medicine; Referring Provider Internal Medicine Pulmonary Disease; Visit Provider Internal Medicine Pulmonary Disease
DX: R05.9 Cough, unspecified (principal); J98.4 Other disorders of lung; J98.8 Other specified respiratory disorders
CPT/HCPCS: 94060; 94726; 94729

== ENCOUNTER → 2021-08-19 14:47 | Outpatient (CLI) | payer MEDICARE, SELFPAY ==
--- NOTE | 2021-08-19 | DI.CT.S_ITS ---
PROCEDURE: CT CHEST HIGH RESOLUTION INDICATIONS: Cough, unspecified TECHNIQUE: Noncontrast 1.0 and 5.0 mm thick contiguous axial sections from the pulmonary apex to the posterior costophrenic angles, with 7 mm thick coronal and sagittal MIP reformats. 1 mm thick dynamic expiratory images acquired through the upper, mid, and lower lungs. 1.0 mm thick axial sections acquired from the rosy to the posterior costophrenic angles in the prone end-inspiration position. For radiation dose reduction, the following was used: automated exposure control, adjustment of mA and/or kV according to patient size. COMPARISON: [facility], CR, XR CHEST 1V, 06/18/2021, 12:54. FINDINGS: Image quality: Excellent. Lungs: Minimal dependent streaky opacity which partly persists on the prone sequences. This most likely represents scarring or atelectasis. No significant acute airspace opacity. No significant reticular thickening. No honeycombing. No bronchiectasis. The airways are clear. Tiny mucous plugs for example in the right lower lobe, (3/187). No significant air trapping. No mass or significant pulmonary nodules. Pleura: No pleural effusions or pneumothorax. Mediastinum: Heart size is normal. Trace pericardial fluid. No mediastinal or hilar adenopathy identified. Thoracic aorta and central pulmonary arteries are normal in size. Esophagus is normal in caliber. Bones and chest wall: No suspicious bony lesions. No vertebral body compression fractures. No axillary or supraclavicular adenopathy. Thyroid gland is heterogeneous. Abdomen: Visualized upper abdominal solid organs and bowel loops appear normal. IMPRESSION: 1. No interstitial lung disease demonstrated. Minimal scarring or atelectasis at the lung bases. 2. A few tiny areas of distal mucus airway plugging. Dictated by: Javier Bruner M.D. on 08/20/2021 at 8:44 Approved by: Javier Bruner M.D. on 08/20/2021 at 8:53
--- NOTE | 2021-08-25 13:02 | PC.NURSE ---
Called pt to let her know that Dr. Watts had placed addendum in pt's medical record. No further questions.
== END ==
PROVIDERS: PCP Family Medicine; Referring Provider Internal Medicine Pulmonary Disease; Visit Provider Internal Medicine Pulmonary Disease
DX: R05.9 Cough, unspecified (principal)
CPT/HCPCS: 71250

== ENCOUNTER → 2022-05-17 11:11 | Outpatient (CLI) | payer MEDICARE, SELFPAY ==
--- NOTE | 2022-05-17 11:12 | DI.MG.S_ITS ---
BILATERAL DIGITAL SCREENING MAMMOGRAM 3D/2D WITH CAD: 05/17/2022 CLINICAL: Routine screening. Comparison is made to exams dated: 05/05/2021 mammogram, 03/21/2020 mammogram, and 03/14/2019 mammogram - [facility]. Both breasts are heterogeneously dense, which may obscure small masses (category c / 51-75% glandular tissue). Current study was also evaluated with a Computer Aided Detection (CAD) system. No significant masses, calcifications, or other findings are seen in either breast. There has been no significant interval change. IMPRESSION: NEGATIVE There is no mammographic evidence of malignancy. A 1 year screening mammogram is recommended. Based on the Tyrer Cuzick model (a risk assessment model) the patient's lifetime risk is 1.2% and her 10 year risk is 0.0%. According to the ACR, ACS, and NCCN guidelines, an annual breast MRI exam along with mammogram is recommended if the patient's lifetime risk is 20% or greater. This exam was interpreted at Station ID: [id number]. NOTE: For mammograms, a report in lay terms will be sent to the patient. Approximately 15% of breast malignancies will not be visualized mammographically. In the management of a palpable breast mass, a negative mammogram must not discourage biopsy of a clinically suspicious lesion. Electronically Signed By: Carl tovar/alexis:05/17/2022 12:47:46 letter sent: Normal Exam ACR BI-RADS Category 1: Negative [id number]
== END ==
PROVIDERS: PCP Family Medicine; Referring Provider Family Medicine; Visit Provider Family Medicine
DX: Z12.31 Encounter for screening mammogram for malignant neoplasm of breast (principal)
CPT/HCPCS: 77063; 77067

== ENCOUNTER → 2022-09-09 10:02 | Outpatient (CLI) | payer MEDICARE, SELFPAY ==
[2022-09-09 11:15] LABS: Add Manual Diff / Slide Review NO; Basophils Absolute Auto 100 /uL (0-100); Basophils Percent Auto 1.5 % (0-2); Eosinophils Absolute Auto 100 /uL (0-450); Eosinophils Percent Auto 2.4 % (2-4); Hematocrit 41.2 % (36-46); Lymphocytes Absolute Auto 1200 /uL (1100-4500); Mean Corpuscular Hemoglobin 35.5 PG (26-34); Mean Corpuscular Volume 104.6 fL (80-100); Monocytes Absolute Auto 400 /uL (0-900); Monocytes Percent Auto 9.9 % (3-14); Neutrophils Absolute Auto 2600 /uL (1500-7000); Neutrophils Percent Auto 59.2 % (50-75); Platelet Count 118 X10^3/uL (150-400); Red Blood Cell Count 3.94 X10^6/uL (4.0-5.2); Red Cell Distribution Width 15.7 % (11.6-14.8); White Blood Cell Count 4.4 X10^3/uL (4.5-11.0)
[2022-09-09 11:47] LABS: Alanine Aminotransferase 27 IU/L (<35); Albumin 4.5 g/dL (3.5-5.0); Albumin Globulin Ratio 1.5 (1.0-2.8); Alkaline Phosphatase 75 U/L (38-126); Aspartate Aminotransferase 39 IU/L (14-36); BUN Creatinine Ratio 21.6 (6-22); Bilirubin Total 0.6 mg/dL (0.2-1.3); Blood Urea Nitrogen 11 mg/dL (7-17); Calcium 9.2 mg/dL (8.4-10.2); Carbon Dioxide 28 mmol/L (22-32); Chloride 104 mmol/L (98-107); Estimated Glomerular Filt Rate > 60 mL/min (>60); Glucose 101 mg/dL (80-110); HEMOLYSIS < 15 (0-50); Potassium 3.7 mmol/L (3.4-5.1); Sodium 141 mmol/L (137-145); Total Protein 7.5 g/dL (6.3-8.2)
[2022-09-09 12:04] LABS: Vitamin D 25 Hydroxy (D3) 44.7 ng/mL (30.0-100.0)
[2022-09-09 12:21] LABS: TSH w/ Reflex to FT4 0.99 uIU/mL (0.47-4.68)
[2022-09-09 12:37] LABS: Vitamin B12 893 pg/mL (239-931)
== END ==
PROVIDERS: PCP Family Medicine; Referring Provider Family Medicine; Visit Provider Family Medicine
DX: D75.89 Other specified diseases of blood and blood-forming organs (principal); I10 Essential (primary) hypertension; R42 Dizziness and giddiness; E55.9 Vitamin D deficiency, unspecified
CPT/HCPCS: 36415; 80053; 82306; 82607; 84443; 85025

== ENCOUNTER → 2022-09-13 13:12 | Outpatient (CLI) | payer MEDICARE, SELFPAY | PROVIDERS: PCP Family Medicine; Visit Provider Family Medicine | DX: N89.8 Other specified noninflammatory disorders of vagina (principal); N93.9 Abnormal uterine and vaginal bleeding, unspecified | CPT/HCPCS: 87086; 87210 ==

== ENCOUNTER → 2023-01-26 14:04 | Outpatient (CLI) | payer MEDICARE, SELFPAY ==
[2023-01-27 13:08] LABS: Candida species Negative (Negative); Gardnerella vaginalis Negative (Negative); Trichomoas vaginalis Negative (Negative)
== END ==
PROVIDERS: PCP Family Medicine; Visit Provider Physician Assistant Medical
DX: N89.8 Other specified noninflammatory disorders of vagina (principal)
CPT/HCPCS: 87480; 87510; 87660

== ENCOUNTER → 2023-03-29 15:16 | Outpatient (CLI) | payer MEDICARE, SELFPAY ==
--- NOTE | 2023-03-29 15:17 | DI.CT.S_ITS ---
PROCEDURE: CT HEAD/BRAIN WO CON INDICATIONS: progressive ataxic gait TECHNIQUE: Noncontrast 4.5 mm thick angled axial sections acquired from the foramen magnum to the vertex, with coronal and sagittal reformats. For radiation dose reduction, the following was used: automated exposure control, adjustment of mA and/or kV according to patient size. COMPARISON: None. FINDINGS: Image quality: This examination is limited by involuntary motion artifact. Mild streak artifact can be seen through the skull base. CSF spaces: Basal cisterns are patent. No extra-axial fluid collections. The ventricles are symmetric in size and shape. Brain: No intracranial bleeds or masses. There is cerebral volume loss for age, with resultant ventricular and sulcal prominence. There are periventricular and deep white matter chronic small vessel ischemic changes. There is intracranial internal carotid artery atherosclerosis. Skull and face: Calvarium and visualized facial bones appear intact, without suspicious lesions. Sinuses: Visualized sinuses and mastoids are clear. IMPRESSION: Noncontrast head CT within normal limits for age. Dictated by: Jorge Arriola M.D. on 03/29/2023 at 14:46 Approved by: Jorge Arriola M.D. on 03/29/2023 at 14:47
== END ==
PROVIDERS: PCP Family Medicine; Referring Provider Family Medicine; Visit Provider Family Medicine
DX: R26.0 Ataxic gait (principal); R26.81 Unsteadiness on feet
CPT/HCPCS: 70450

== ENCOUNTER → 2023-05-25 15:42 | Outpatient (CLI) | payer MEDICARE, SELFPAY ==
--- NOTE | 2023-05-25 | DI.MG.S_ITS ---
BILATERAL DIGITAL SCREENING MAMMOGRAM 3D/2D WITH CAD: 05/25/2023 CLINICAL: Routine screening. Comparison is made to exams dated: 05/17/2022 mammogram, 05/05/2021 mammogram, and 03/21/2020 mammogram - [facility]. Both breasts are heterogeneously dense, which may obscure small masses (category c / 51-75% glandular tissue). Current study was also evaluated with a Computer Aided Detection (CAD) system. No significant masses, calcifications, or other findings are seen in either breast. There has been no significant interval change. IMPRESSION: NEGATIVE There is no mammographic evidence of malignancy. A 1 year screening mammogram is recommended. Based on the Tyrer Cuzick model (a risk assessment model) the patient's lifetime risk is 0.9% and her 10 year risk is 0.0%. According to the ACR, ACS, and NCCN guidelines, an annual breast MRI exam along with mammogram is recommended if the patient's lifetime risk is 20% or greater. This exam was interpreted at Station ID: [id number]. NOTE: For mammograms, a report in lay terms will be sent to the patient. Approximately 15% of breast malignancies will not be visualized mammographically. In the management of a palpable breast mass, a negative mammogram must not discourage biopsy of a clinically suspicious lesion. Electronically Signed By: Keith cr/alexis:05/26/2023 11:03:14 letter sent: Normal Exam ACR BI-RADS Category 1: Negative [id number]
== END ==
PROVIDERS: Family Provider Family Medicine; PCP Family Medicine; Referring Provider Family Medicine; Visit Provider Family Medicine
DX: Z12.31 Encounter for screening mammogram for malignant neoplasm of breast (principal)
CPT/HCPCS: 77063; 77067

== ENCOUNTER → 2023-07-13 14:35 | Outpatient (CLI) | payer MEDICARE, SELFPAY | PROVIDERS: Family Provider Family Medicine; PCP Family Medicine; Visit Provider Physician Assistant Medical | DX: N89.8 Other specified noninflammatory disorders of vagina (principal) | CPT/HCPCS: 87070; 87205 ==

== ENCOUNTER 2023-07-26 09:45 | Outpatient (RCR) | payer MEDICARE, SELFPAY ==
--- NOTE | 2023-04-24 17:43 | PT.OIE ---
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 Blepharitis Bursitis of right hip Chronic constipation Colon polyps (1997) COPD (chronic obstructive pulmonary disease) DDD (degenerative disc disease), lumbar Degeneration of meniscus of left knee Dry eyes Frequent sinus infections Frequent UTI Fungal ear infection Ganglion Hearing loss Hemorrhage of pelvic artery History of urinary tract infection Incomplete emptying of bladder Insomnia Insomnia Lumbar disc herniation Lymphocytic colitis Migraines Gallegos's neuroma of left foot Nail fungus Nasal hemorrhage (1999) 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 Osteoarthritis of right hip Overactive bladder Partial retinal detachment of left eye Raynaud's syndrome Recurrent cold sores Scoliosis Sleep apnea Stress incontinence TMJ dysfunction Urinary incontinence, urge Vaginal atrophy Vaginal bleeding Past Surgical History (Last Reviewed 03/23/23 @ 11:23 by Chad Staton DO) History of bladder suspension procedure (1997) History of cataract removal with insertion of prosthetic lens (01/2016) History of colonoscopy (05/15/06) History of colonoscopy (04/30/08) History of colonoscopy (01/06/11) History of colonoscopy with polypectomy (1997) History of colonoscopy with polypectomy (2002) History of inguinal hernia repair (01/07/12) History of left inguinal hernia repair (02/25/16) History of mandibular surgery (10/21/09) History of mandibular surgery (1999) History of nasal septoplasty (2003) History of rectal surgery (1999) History of removal of cyst (1960) History of surgical procedure on eye proper using laser (2010) History of third molar tooth extraction (1963) Status post dilation and curettage (1965) Status post epidural steroid injection (2008) Status post hysterectomy with oophorectomy (1990) Status post left foot surgery (1993) Status post left foot surgery (09/01/10) Status post left foot surgery (12/27/13) Status post nasal surgery (1999) Status post nasal surgery (2004) Status post tonsillectomy and adenoidectomy (~1946) Visit Care Team Role Provider Type Chad Staton DO Attending Provider Physician Family Provider Primary Care Provider Referring Provider Specialty: Family Practice Address: [address] [place] [address], [id number] Email: [email or web address] Physical Therapy Initial Evaluation PT-OP-A Visit Information Start: 04/24/23 17:22 Freq: Status: Active Protocol: Document 04/24/23 16:35 DCW (Rec: 04/24/23 17:34 DCW [id number]) Out-Patient Physical Therapy Visit Information Visit Information Visit Type Initial Evaluation Visit Start Time 16:35 Visit Stop Time 17:15 Total Visit Minutes 40 Visit Number 1 Number of JACKHAMMER OPERATOR Visits 0 Evaluation Information Evaluation Date 04/24/23 PT-OP-B Current Condition Start: 04/24/23 17:22 Freq: Status: Active Protocol: Document 04/24/23 16:35 DCW (Rec: 04/24/23 17:34 DCW [id number]) Current Condition History of Current Condition Onset Date Two year history Current Complaints Fear of falling, unsteadiness, repeated falls History of Current Condition Pt is an 83 year old female presenting with a two year history of worsening balance and repeated falls. Pt reports that she has not yet transitioned to using any assistive devices, but admits that she uses aaron, rails, and furniture as often as possible when up walking. Pt reports that with her three most recent falls, two were caused by catching her foot on something or trying to step over an object, however her most recent one, she was in an elevator, the doors opened, and I just fell backwards through the air, I don't know what happened. Admits to having a significant, worsening fear of falling. Additionally, her brother was diagnosed with Parkinson's Disease two years ago, and his first symptom was worsening balance, so she is understandably scared of this due to her recent falls. Prior Treatments and Tests Head CT: IMPRESSION: Noncontrast head CT within normal limits for age. per Jorge Arriola M.D. on 03/29 Treatment Goals Patient/Caregiver Goals Decrease fear of falling and improve stability PT-OP-C Subjective Start: 04/24/23 17:22 Freq: Status: Active Protocol: Document 04/24/23 16:35 DCW (Rec: 04/24/23 17:34 DC [id number]) OP-PT Subjective Patient Comments Patient Comments I was just visiting my son, who has a new baby, and I was carrying the baby, and came upon thee steps without railing. I had to give him back and hold onto my son to get down the stairs. Patient Reported Progress Worse Patient Questionnaires ABC- Activity Specific Balance Confidence Scale ABC Score 64.38% ABC Functional Impairment 20 to <40% Impaired (Score 61- 80) PT-OP-D Balance Start: 04/24/23 17:22 Freq: Status: Active Protocol: Document 04/24/23 16:35 DCW (Rec: 04/24/23 17:34 DC [id number]) OP-PT Balance Assessment Sitting Balance Static Sitting Balance Ability Normal Dynamic Sitting Balance Ability Normal Standing Balance Static Standing Balance Ability Fair Dynamic Standing Balance Ability Poor Device Used None Balance Tests Eason Balance Test Eason Balance Test Score 46/56 Eason Impairment Rating 1 to 19% Impaired (Score 45-55 ) Eason Balance Assessment Evaluation Sitting to Standing Ability Independent w/out Hands Unsupported Stance Safely- 2 minutes Sitting Unsupported, Feet on Floor Safely- 2 minutes Standing to Sitting Ability Safely, Minimal Hand Use Transfer Ability Safely, Minimal Hand Use Unsupported Stance- Eyes Closed Safely, 10 seconds Unsupported Stance- Eyes Open Independent, 1 minute Reaching Forward Standing Safely, 5 inches Pick- Up Object From Floor Independent/Safe Look Behind Shoulder - Standing Shifts Weight Unilateral Turning 360 Degrees Turns slowly, but safely Unsupported Stance, Alternating Feet on (I)- 8 Steps in > 20 secs Stair Unsupported Tandem Stance Small Step- 30 seconds Unilateral Leg Stance Lifts Leg/Unable to Hold Total Score Eason Total Score (out of 56 points) 46 Eason Impairment Rating 1 to 19% Impaired (Score 45-55 ) Villalobos Fall Scale Copyright Permission PT-OP-E Functional Tests Start: 04/24/23 17:22 Freq: Status: Active Protocol: Document 04/24/23 16:35 DCW (Rec: 04/24/23 17:34 DC [id number]) Functional Tests Dynamic Gait Index (DGI) Score 16/24 DGI Impairment Rating 20 to <40% Impaired (Score 15- 19) Timed Up and Go (TUG) Score 14.27 Comments Three-trial average (15.46, 14 .02, 13.32) PT-OP-M Strength Start: 04/24/23 17:22 Freq: Status: Active Protocol: Document 04/24/23 16:35 DCW (Rec: 04/24/23 17:34 DCW [id number]) Hip Strength Hip Manual Muscle Testing Right Flexion (L2) 4- Good- Abduction 4- Good- Adduction 4- Good- Left Flexion (L2) 4- Good- Abduction 4- Good- Adduction 4- Good- Knee Strength Knee Manual Muscle Testing Right Flexion (S2) 4+ Good+ Extension (L3) 4+ Good+ Left Flexion (S2) 4+ Good+ Extension (L3) 4+ Good+ Ankle/Foot Strength Ankle and Foot Manual Muscle Testing Right Dorsiflexion (L4) 4+ Good+ Left Dorsiflexion (L4) 4+ Good+ PT-OP-T Assessment and Plan Start: 04/24/23 17:22 Freq: Status: Active Protocol: Document 04/24/23 16:35 DCW (Rec: 04/24/23 17:43 DCW [id number]) Physical Therapy Assessment Rehab Potential Rehabilitation Potential Good Evaluation Complexity Number of Personal Factors/Comorbidities 1-2 Number of Body Systems Impaired 1-2 Clinical Presentation at Evaluation Unstable Impairments Impairments Balance,Functional Activities, Functional Mobility,Strength Goals Two Impairment DGI score (16/24) places pt into a high falls-risk category Penitentiary Goal (LTG) Pt to improve DGI score by at least 4 points to 20/24 in order to demonstrate a decrease in falls risk LTG Duration 07/03/23 One Impairment Pt does not have an appropriate home exercise program Short Term Goal (STG) Pt to be independent and compliant with an appropriate HEP STG Duration 05/25/23 Assessment Summary Assessment Pt presents with signs and symptoms consistent with referring diagnosis. Pt tests as a high falls risk, per DGI score of 16/24. Pt additionally scores 14/27 on the TUG, which also suggests an increased risk of falling. Pt appears to struggle more with balance when distracted with various tasks, such as head turns or obstacles. Pt should benefit from skilled therapy focusing on balance and gait training, dynamic challenges, hip strengthening, and training for stability on uneven/compliant surfaces. Physical Therapy Plan Frequency and Duration Frequency of Treatment 2x/Week Plan of Care Start Date 04/24/23 Plan of Care End Date 07/03/23 Therapeutic Interventions Therapeutic Interventions Balance Training,Home Exercise Program,Manual Therapy, Neuromuscular Re-education, Patient/Caregiver Education, Self-Care/Home Management,Soft Tissue Mobilization, Therapeutic Activities, Therapeutic Exercises, Vestibular Rehabilitation Next Visit Focus/Plan Next Note Type Treatment Note Next Visit Plan Dynamic balance challenges, hip strengthening
--- NOTE | 2023-04-24 17:44 | PT.OPPOC ---
Physical, Occupational & Speech Therapy At [facility] Current Diagnoses Unsteadiness on feet (04/24/23) Repeated falls (04/24/23) Dizziness and giddiness (04/24/23) Visit Care Team Role Provider Type Chad Staton DO Attending Provider Physician Family Provider Primary Care Provider Referring Provider Specialty: Family Practice Address: [address] [place] [address], [facility] Email: [email or web address] Plan Of Care PT-OP-T Assessment and Plan Start: 04/24/23 17:22 Freq: Status: Active Protocol: Document 04/24/23 16:35 DCW (Rec: 04/24/23 17:43 DCW [id number]) Physical Therapy Assessment Rehab Potential Rehabilitation Potential Good Evaluation Complexity Number of Personal Factors/Comorbidities 1-2 Number of Body Systems Impaired 1-2 Clinical Presentation at Evaluation Unstable Impairments Impairments Balance,Functional Activities, Functional Mobility,Strength Goals Two Impairment DGI score (16/24) places pt into a high falls-risk category Half-Way Goal (LTG) Pt to improve DGI score by at least 4 points to 20/24 in order to demonstrate a decrease in falls risk LTG Duration 07/03/23 One Impairment Pt does not have an appropriate home exercise program Short Term Goal (STG) Pt to be independent and compliant with an appropriate HEP STG Duration 05/25/23 Assessment Summary Assessment Pt presents with signs and symptoms consistent with referring diagnosis. Pt tests as a high falls risk, per DGI score of 16/24. Pt additionally scores 14/27 on the TUG, which also suggests an increased risk of falling. Pt appears to struggle more with balance when distracted with various tasks, such as head turns or obstacles. Pt should benefit from skilled therapy focusing on balance and gait training, dynamic challenges, hip strengthening, and training for stability on uneven/compliant surfaces. Physical Therapy Plan Frequency and Duration Frequency of Treatment 2x/Week Plan of Care Start Date 04/24/23 Plan of Care End Date 07/03/23 Therapeutic Interventions Therapeutic Interventions Balance Training,Home Exercise Program,Manual Therapy, Neuromuscular Re-education, Patient/Caregiver Education, Self-Care/Home Management,Soft Tissue Mobilization, Therapeutic Activities, Therapeutic Exercises, Vestibular Rehabilitation Next Visit Focus/Plan Next Note Type Treatment Note Next Visit Plan Dynamic balance challenges, hip strengthening Plan of Care Dates Plan of Care Start Date 04/24/23 Plan of Care End Date 07/03/23 Electronically Signed by: Gen White, PT 04/24/23 1059 If you are in agreement with this Plan of Care, please return a signed and dated copy. I have reviewed this Plan of Care and certify that the skilled therapy services above are required to meet the patient?s needs. Physician Signature Date Printed Name and Credentials Clinical Instructor Signature Printed Name and Credentials
--- NOTE | 2023-04-28 16:00 | PT.OTN ---
Current Diagnoses Unsteadiness on feet (04/28/23) Repeated falls (04/28/23) Dizziness and giddiness (04/28/23) Physical Therapy Treatment Note PT-OP-A Visit Information Start: 04/24/23 17:22 Freq: Status: Active Protocol: Document 04/28/23 15:15 DCW (Rec: 04/28/23 16:00 DCW [id number]) Out-Patient Physical Therapy Visit Information Visit Information Visit Type Treatment Note Visit Start Time 15:15 Visit Stop Time 16:00 Total Visit Minutes 45 Visit Number 2 Number of BOXING TRAINER Visits 0 Evaluation Information Evaluation Date 04/24/23 PT-OP-B Current Condition Start: 04/24/23 17:22 Freq: Status: Active Protocol: Document 04/24/23 16:35 DCW (Rec: 04/24/23 17:34 DCW [id number]) Current Condition History of Current Condition Onset Date Two year history Current Complaints Fear of falling, unsteadiness, repeated falls History of Current Condition Pt is an 83 year old female presenting with a two year history of worsening balance and repeated falls. Pt reports that she has not yet transitioned to using any assistive devices, but admits that she uses aaron, rails, and furniture as often as possible when up walking. Pt reports that with her three most recent falls, two were caused by catching her foot on something or trying to step over an object, however her most recent one, she was in an elevator, the doors opened, and I just fell backwards through the air, I don't know what happened. Admits to having a significant, worsening fear of falling. Additionally, her brother was diagnosed with Parkinson's Disease two years ago, and his first symptom was worsening balance, so she is understandably scared of this due to her recent falls. Prior Treatments and Tests Head CT: IMPRESSION: Noncontrast head CT within normal limits for age. per Jorge Arriola M.D. on 03/29 Treatment Goals Patient/Caregiver Goals Decrease fear of falling and improve stability PT-OP-C Subjective Start: 04/24/23 17:22 Freq: Status: Active Protocol: Document 04/28/23 15:15 DCW (Rec: 04/28/23 16:00 DCW [id number]) OP-PT Subjective Patient Comments Patient Comments Pt reports she is doing fairly well today. PT-OP-D Balance Start: 04/24/23 17:22 Freq: Status: Active Protocol: Document 04/24/23 16:35 DCW (Rec: 04/24/23 17:34 DCW [id number]) OP-PT Balance Assessment Sitting Balance Static Sitting Balance Ability Normal Dynamic Sitting Balance Ability Normal Standing Balance Static Standing Balance Ability Fair Dynamic Standing Balance Ability Poor Device Used None Balance Tests Eason Balance Test Eason Balance Test Score 46/56 Eason Impairment Rating 1 to 19% Impaired (Score 45-55 ) Eason Balance Assessment Evaluation Sitting to Standing Ability Independent w/out Hands Unsupported Stance Safely- 2 minutes Sitting Unsupported, Feet on Floor Safely- 2 minutes Standing to Sitting Ability Safely, Minimal Hand Use Transfer Ability Safely, Minimal Hand Use Unsupported Stance- Eyes Closed Safely, 10 seconds Unsupported Stance- Eyes Open Independent, 1 minute Reaching Forward Standing Safely, 5 inches Pick- Up Object From Floor Independent/Safe Look Behind Shoulder - Standing Shifts Weight Unilateral Turning 360 Degrees Turns slowly, but safely Unsupported Stance, Alternating Feet on (I)- 8 Steps in > 20 secs Stair Unsupported Tandem Stance Small Step- 30 seconds Unilateral Leg Stance Lifts Leg/Unable to Hold Total Score Eason Total Score (out of 56 points) 46 Eason Impairment Rating 1 to 19% Impaired (Score 45-55 ) Villalobos Fall Scale Copyright Permission PT-OP-E Functional Tests Start: 04/24/23 17:22 Freq: Status: Active Protocol: Document 04/24/23 16:35 DCW (Rec: 04/24/23 17:34 DCW [id number]) Functional Tests Dynamic Gait Index (DGI) Score 16/24 DGI Impairment Rating 20 to <40% Impaired (Score 15- 19) Timed Up and Go (TUG) Score 14.27 Comments Three-trial average (15.46, 14 .02, 13.32) PT-OP-M Strength Start: 04/24/23 17:22 Freq: Status: Active Protocol: Document 04/24/23 16:35 DCW (Rec: 04/24/23 17:34 DCW [id number]) Hip Strength Hip Manual Muscle Testing Right Flexion (L2) 4- Good- Abduction 4- Good- Adduction 4- Good- Left Flexion (L2) 4- Good- Abduction 4- Good- Adduction 4- Good- Knee Strength Knee Manual Muscle Testing Right Flexion (S2) 4+ Good+ Extension (L3) 4+ Good+ Left Flexion (S2) 4+ Good+ Extension (L3) 4+ Good+ Ankle/Foot Strength Ankle and Foot Manual Muscle Testing Right Dorsiflexion (L4) 4+ Good+ Left Dorsiflexion (L4) 4+ Good+ PT-OP-Q Treatments Start: 04/24/23 17:22 Freq: Status: Active Protocol: Document 04/28/23 15:15 DCW (Rec: 04/28/23 16:00 DCW [id number]) Gym Equipment Shuttle Balance Red Details WBOS, Staggered Neuro Re-Education Treatment Balance Activities SLS Details SLS Equipment // bars Hallway Ambulation Details Headturns, retro ambulation Comments Metronome 90 bpm Hurdles Details Hurdles Comments Fwd, Side-stepping Foam Stance Details EO/EC Surface Blue Foam Tandem Details Tandem Ambulation Equipment // bars PT-OP-T Assessment and Plan Start: 04/24/23 17:22 Freq: Status: Active Protocol: Document 04/28/23 15:15 DCW (Rec: 04/28/23 16:00 [facility] [id number]) Physical Therapy Assessment Impairments Impairments Balance,Functional Activities, Functional Mobility,Strength Goals Two Impairment DGI score (16/24) places pt into a high falls-risk category Mcfp Goal (LTG) Pt to improve DGI score by at least 4 points to 20/24 in order to demonstrate a decrease in falls risk LTG Duration 07/03/23 One Impairment Pt does not have an appropriate home exercise program Short Term Goal (STG) Pt to be independent and compliant with an appropriate HEP STG Duration 05/25/23 Assessment Summary Assessment Pt did very well today adjusting to various balance challenges, able to perform all requested activities, no real reliance on upper extremities for support after first few attempts. Had some slight difficulty with head turns to 90 bpm metronome, resulted in some path deviation. Physical Therapy Plan Frequency and Duration Frequency of Treatment 2x/Week Plan of Care Start Date 04/24/23 Plan of Care End Date 07/03/23 Therapeutic Interventions Therapeutic Interventions Balance Training,Home Exercise Program,Manual Therapy, Neuromuscular Re-education, Patient/Caregiver Education, Self-Care/Home Management,Soft Tissue Mobilization, Therapeutic Activities, Therapeutic Exercises, Vestibular Rehabilitation Next Visit Focus/Plan Next Note Type Treatment Note Next Visit Plan Dynamic balance challenges, hip strengthening
--- NOTE | 2023-05-02 11:46 | PT.OTN ---
Current Diagnoses Unsteadiness on feet (05/02/23) Repeated falls (05/02/23) Dizziness and giddiness (05/02/23) Physical Therapy Treatment Note PT-OP-A Visit Information Start: 04/24/23 17:22 Freq: Status: Active Protocol: Document 05/02/23 11:00 DCW (Rec: 05/02/23 11:46 DCW [id number]) Out-Patient Physical Therapy Visit Information Visit Information Visit Type Treatment Note Visit Start Time 11:00 Visit Stop Time 11:45 Total Visit Minutes 45 Visit Number 3 Number of PRODUCTION CLERKS SUPERVISOR Visits 0 Evaluation Information Evaluation Date 04/24/23 PT-OP-B Current Condition Start: 04/24/23 17:22 Freq: Status: Active Protocol: Document 04/24/23 16:35 DCW (Rec: 04/24/23 17:34 DCW [id number]) Current Condition History of Current Condition Onset Date Two year history Current Complaints Fear of falling, unsteadiness, repeated falls History of Current Condition Pt is an 83 year old female presenting with a two year history of worsening balance and repeated falls. Pt reports that she has not yet transitioned to using any assistive devices, but admits that she uses aaron, rails, and furniture as often as possible when up walking. Pt reports that with her three most recent falls, two were caused by catching her foot on something or trying to step over an object, however her most recent one, she was in an elevator, the doors opened, and I just fell backwards through the air, I don't know what happened. Admits to having a significant, worsening fear of falling. Additionally, her brother was diagnosed with Parkinson's Disease two years ago, and his first symptom was worsening balance, so she is understandably scared of this due to her recent falls. Prior Treatments and Tests Head CT: IMPRESSION: Noncontrast head CT within normal limits for age. per Jorge Arriola M.D. on 03/29 Treatment Goals Patient/Caregiver Goals Decrease fear of falling and improve stability PT-OP-C Subjective Start: 04/24/23 17:22 Freq: Status: Active Protocol: Document 05/02/23 11:00 DCW (Rec: 05/02/23 11:46 DCW [id number]) OP-PT Subjective Patient Comments Patient Comments Pt has returned to her 3x/week water aerobics/exercise class , feels good with it. PT-OP-D Balance Start: 04/24/23 17:22 Freq: Status: Active Protocol: Document 04/24/23 16:35 DCW (Rec: 04/24/23 17:34 DCW [id number]) OP-PT Balance Assessment Sitting Balance Static Sitting Balance Ability Normal Dynamic Sitting Balance Ability Normal Standing Balance Static Standing Balance Ability Fair Dynamic Standing Balance Ability Poor Device Used None Balance Tests Eason Balance Test Eason Balance Test Score 46/56 Eason Impairment Rating 1 to 19% Impaired (Score 45-55 ) Eason Balance Assessment Evaluation Sitting to Standing Ability Independent w/out Hands Unsupported Stance Safely- 2 minutes Sitting Unsupported, Feet on Floor Safely- 2 minutes Standing to Sitting Ability Safely, Minimal Hand Use Transfer Ability Safely, Minimal Hand Use Unsupported Stance- Eyes Closed Safely, 10 seconds Unsupported Stance- Eyes Open Independent, 1 minute Reaching Forward Standing Safely, 5 inches Pick- Up Object From Floor Independent/Safe Look Behind Shoulder - Standing Shifts Weight Unilateral Turning 360 Degrees Turns slowly, but safely Unsupported Stance, Alternating Feet on (I)- 8 Steps in > 20 secs Stair Unsupported Tandem Stance Small Step- 30 seconds Unilateral Leg Stance Lifts Leg/Unable to Hold Total Score Eason Total Score (out of 56 points) 46 Eason Impairment Rating 1 to 19% Impaired (Score 45-55 ) Villalobos Fall Scale Copyright Permission PT-OP-E Functional Tests Start: 04/24/23 17:22 Freq: Status: Active Protocol: Document 04/24/23 16:35 DCW (Rec: 04/24/23 17:34 DCW [id number]) Functional Tests Dynamic Gait Index (DGI) Score 16/24 DGI Impairment Rating 20 to <40% Impaired (Score 15- 19) Timed Up and Go (TUG) Score 14.27 Comments Three-trial average (15.46, 14 .02, 13.32) PT-OP-M Strength Start: 04/24/23 17:22 Freq: Status: Active Protocol: Document 04/24/23 16:35 DCW (Rec: 04/24/23 17:34 DCW [id number]) Hip Strength Hip Manual Muscle Testing Right Flexion (L2) 4- Good- Abduction 4- Good- Adduction 4- Good- Left Flexion (L2) 4- Good- Abduction 4- Good- Adduction 4- Good- Knee Strength Knee Manual Muscle Testing Right Flexion (S2) 4+ Good+ Extension (L3) 4+ Good+ Left Flexion (S2) 4+ Good+ Extension (L3) 4+ Good+ Ankle/Foot Strength Ankle and Foot Manual Muscle Testing Right Dorsiflexion (L4) 4+ Good+ Left Dorsiflexion (L4) 4+ Good+ PT-OP-Q Treatments Start: 04/24/23 17:22 Freq: Status: Active Protocol: Document 05/02/23 11:00 DCW (Rec: 05/02/23 11:46 DCW [id number]) Gym Equipment Shuttle Balance Red Details WBOS, Staggered, Lateral weight shift Neuro Re-Education Treatment Balance Activities BOSU Details BOSU Comments EO, X1 Ball/cone transfers Details Ball/cone transfers Hallway Ambulation Details Headturns, retro ambulation Comments Metronome 90 bpm Hurdles Details Hurdles Comments Fwd, Side-stepping Foam Stance Details NBOS EO/EC Surface Blue Foam Tandem Details Tandem Ambulation Equipment // bars PT-OP-T Assessment and Plan Start: 04/24/23 17:22 Freq: Status: Active Protocol: Document 05/02/23 11:00 DCW (Rec: 05/02/23 11:46 DCW [id number]) Physical Therapy Assessment Impairments Impairments Balance,Functional Activities, Functional Mobility,Strength Goals Two Impairment DGI score (16/24) places pt into a high falls-risk category Detention Goal (LTG) Pt to improve DGI score by at least 4 points to 20/24 in order to demonstrate a decrease in falls risk LTG Duration 07/03/23 One Impairment Pt does not have an appropriate home exercise program Short Term Goal (STG) Pt to be independent and compliant with an appropriate HEP STG Duration 05/25/23 Assessment Summary Assessment Pt did better with head turns today, feeling better with most challenges compared to last week. Physical Therapy Plan Frequency and Duration Frequency of Treatment 2x/Week Plan of Care Start Date 04/24/23 Plan of Care End Date 07/03/23 Therapeutic Interventions Therapeutic Interventions Balance Training,Home Exercise Program,Manual Therapy, Neuromuscular Re-education, Patient/Caregiver Education, Self-Care/Home Management,Soft Tissue Mobilization, Therapeutic Activities, Therapeutic Exercises, Vestibular Rehabilitation Next Visit Focus/Plan Next Note Type Treatment Note Next Visit Plan Dynamic balance challenges, hip strengthening
--- NOTE | 2023-05-10 12:49 | PT.OTN ---
Current Diagnoses Unsteadiness on feet (05/10/23) Repeated falls (05/10/23) Dizziness and giddiness (05/10/23) Physical Therapy Treatment Note PT-OP-A Visit Information Start: 04/24/23 17:22 Freq: Status: Active Protocol: Document 05/10/23 11:47 SW (Rec: 05/10/23 12:49 SW [id number]) Out-Patient Physical Therapy Visit Information Visit Information Visit Type Treatment Note Visit Start Time 11:47 Visit Stop Time 12:30 Total Visit Minutes 43 Visit Number 4 Number of CAGE SHIFT MANAGER Visits 1 PT-OP-B Current Condition Start: 04/24/23 17:22 Freq: Status: Active Protocol: Document 04/24/23 16:35 DCW (Rec: 04/24/23 17:34 DCW [id number]) Current Condition History of Current Condition Onset Date Two year history Current Complaints Fear of falling, unsteadiness, repeated falls History of Current Condition Pt is an 83 year old female presenting with a two year history of worsening balance and repeated falls. Pt reports that she has not yet transitioned to using any assistive devices, but admits that she uses aaron, rails, and furniture as often as possible when up walking. Pt reports that with her three most recent falls, two were caused by catching her foot on something or trying to step over an object, however her most recent one, she was in an elevator, the doors opened, and I just fell backwards through the air, I don't know what happened. Admits to having a significant, worsening fear of falling. Additionally, her brother was diagnosed with Parkinson's Disease two years ago, and his first symptom was worsening balance, so she is understandably scared of this due to her recent falls. Prior Treatments and Tests Head CT: IMPRESSION: Noncontrast head CT within normal limits for age. per Jorge Arriola M.D. on 03/29 Treatment Goals Patient/Caregiver Goals Decrease fear of falling and improve stability PT-OP-C Subjective Start: 04/24/23 17:22 Freq: Status: Active Protocol: Document 05/10/23 11:47 SW (Rec: 05/10/23 12:49 SW [id number]) OP-PT Subjective Patient Comments Patient Comments Pt reports doing about the same. Pt water aerobics class is going well. Reports her and her would like to install a chair to go up the stairs and a grab bar in their shower, looking for recommendations for a professional panel installer for their tile shower. PT-OP-D Balance Start: 04/24/23 17:22 Freq: Status: Active Protocol: Document 04/24/23 16:35 DCW (Rec: 04/24/23 17:34 DCW [id number]) OP-PT Balance Assessment Sitting Balance Static Sitting Balance Ability Normal Dynamic Sitting Balance Ability Normal Standing Balance Static Standing Balance Ability Fair Dynamic Standing Balance Ability Poor Device Used None Balance Tests Eason Balance Test Eason Balance Test Score 46/56 Eason Impairment Rating 1 to 19% Impaired (Score 45-55 ) Eason Balance Assessment Evaluation Sitting to Standing Ability Independent w/out Hands Unsupported Stance Safely- 2 minutes Sitting Unsupported, Feet on Floor Safely- 2 minutes Standing to Sitting Ability Safely, Minimal Hand Use Transfer Ability Safely, Minimal Hand Use Unsupported Stance- Eyes Closed Safely, 10 seconds Unsupported Stance- Eyes Open Independent, 1 minute Reaching Forward Standing Safely, 5 inches Pick- Up Object From Floor Independent/Safe Look Behind Shoulder - Standing Shifts Weight Unilateral Turning 360 Degrees Turns slowly, but safely Unsupported Stance, Alternating Feet on (I)- 8 Steps in > 20 secs Stair Unsupported Tandem Stance Small Step- 30 seconds Unilateral Leg Stance Lifts Leg/Unable to Hold Total Score Eason Total Score (out of 56 points) 46 Eason Impairment Rating 1 to 19% Impaired (Score 45-55 ) Villalobos Fall Scale Copyright Permission PT-OP-E Functional Tests Start: 04/24/23 17:22 Freq: Status: Active Protocol: Document 04/24/23 16:35 DCW (Rec: 04/24/23 17:34 DCW [id number]) Functional Tests Dynamic Gait Index (DGI) Score 16/24 DGI Impairment Rating 20 to <40% Impaired (Score 15- 19) Timed Up and Go (TUG) Score 14.27 Comments Three-trial average (15.46, 14 .02, 13.32) PT-OP-M Strength Start: 04/24/23 17:22 Freq: Status: Active Protocol: Document 04/24/23 16:35 DCW (Rec: 04/24/23 17:34 DCW [id number]) Hip Strength Hip Manual Muscle Testing Right Flexion (L2) 4- Good- Abduction 4- Good- Adduction 4- Good- Left Flexion (L2) 4- Good- Abduction 4- Good- Adduction 4- Good- Knee Strength Knee Manual Muscle Testing Right Flexion (S2) 4+ Good+ Extension (L3) 4+ Good+ Left Flexion (S2) 4+ Good+ Extension (L3) 4+ Good+ Ankle/Foot Strength Ankle and Foot Manual Muscle Testing Right Dorsiflexion (L4) 4+ Good+ Left Dorsiflexion (L4) 4+ Good+ PT-OP-Q Treatments Start: 04/24/23 17:22 Freq: Status: Active Protocol: Document 05/10/23 11:47 (Rec: 05/10/23 12:49 [id number]) Therapeutic Exercises Standing Exercises Hip Abd Side bilateral Resistance [place] Equipment Used x10 Hip Ext Side bilateral Resistance [place] Reps/Minutes x10 Toe Taps Side bilateral Resistance 5# Equipment Used @ stair Reps/Minutes x10 Neuro Re-Education Treatment Balance Activities Foam Marches Details low marches Surface unstable Comments looking forward without visual input on LE BOSU Details BOSU Comments EO, X1 SLS Details SLS Equipment // bars Foam Stance Details NBOS EO/EC/ head turns Surface Blue Foam Tandem Details Tandem Ambulation Equipment // bars PT-OP-T Assessment and Plan Start: 04/24/23 17:22 Freq: Status: Active Protocol: Document 05/10/23 11:47 (Rec: 05/10/23 12:49 [id number]) Physical Therapy Assessment Goals Two Impairment DGI score () places pt into a high falls-risk category Fpc Goal (LTG) Pt to improve DGI score by at least 4 points to 24 in order to demonstrate a decrease in falls risk LTG Duration 07/03/23 One Impairment Pt does not have an appropriate home exercise program Short Term Goal (STG) Pt to be independent and compliant with an appropriate HEP *05/10/23- Hip Abd/Hip Ext STG Duration 05/25/23 Assessment Summary Assessment Patient highly reliant on visual input throughout session today, challenged patient with forward gaze during balance activities today. Started hip strengthening this session. pt looking for recommendations for install of DME in tile shower. Physical Therapy Plan Frequency and Duration Frequency of Treatment 2x/Week Plan of Care Start Date 04/24/23 Plan of Care End Date 07/03/23 Therapeutic Interventions Therapeutic Interventions Balance Training,Home Exercise Program,Manual Therapy, Neuromuscular Re-education, Patient/Caregiver Education, Self-Care/Home Management,Soft Tissue Mobilization, Therapeutic Activities, Therapeutic Exercises, Vestibular Rehabilitation Next Visit Focus/Plan Next Note Type Treatment Note Next Visit Plan Dynamic balance challenges, hip strengthening
--- NOTE | 2023-05-22 10:16 | PT.OTN ---
Current Diagnoses Unsteadiness on feet (05/22/23) Repeated falls (05/22/23) Dizziness and giddiness (05/22/23) Physical Therapy Treatment Note PT-OP-A Visit Information Start: 04/24/23 17:22 Freq: Status: Active Protocol: Document 05/22/23 09:30 DCW (Rec: 05/22/23 10:16 DCW [id number]) Out-Patient Physical Therapy Visit Information Visit Information Visit Type Treatment Note Visit Start Time 09:30 Visit Stop Time 10:15 Total Visit Minutes 45 Visit Number 5 Number of E COMMERCE MARKETING MANAGER Visits 0 Evaluation Information Evaluation Date 04/24/23 PT-OP-B Current Condition Start: 04/24/23 17:22 Freq: Status: Active Protocol: Document 04/24/23 16:35 DCW (Rec: 04/24/23 17:34 DCW [id number]) Current Condition History of Current Condition Onset Date Two year history Current Complaints Fear of falling, unsteadiness, repeated falls History of Current Condition Pt is an 83 year old female presenting with a two year history of worsening balance and repeated falls. Pt reports that she has not yet transitioned to using any assistive devices, but admits that she uses aaron, rails, and furniture as often as possible when up walking. Pt reports that with her three most recent falls, two were caused by catching her foot on something or trying to step over an object, however her most recent one, she was in an elevator, the doors opened, and I just fell backwards through the air, I don't know what happened. Admits to having a significant, worsening fear of falling. Additionally, her brother was diagnosed with Parkinson's Disease two years ago, and his first symptom was worsening balance, so she is understandably scared of this due to her recent falls. Prior Treatments and Tests Head CT: IMPRESSION: Noncontrast head CT within normal limits for age. per Jorge Arriola M.D. on 03/29 Treatment Goals Patient/Caregiver Goals Decrease fear of falling and improve stability PT-OP-C Subjective Start: 04/24/23 17:22 Freq: Status: Active Protocol: Document 05/22/23 09:30 DCW (Rec: 05/22/23 10:16 DCW [id number]) OP-PT Subjective Patient Comments Patient Comments I'm not sure if I've noticed much change. PT-OP-D Balance Start: 04/24/23 17:22 Freq: Status: Active Protocol: Document 04/24/23 16:35 DCW (Rec: 04/24/23 17:34 DCW [id number]) OP-PT Balance Assessment Sitting Balance Static Sitting Balance Ability Normal Dynamic Sitting Balance Ability Normal Standing Balance Static Standing Balance Ability Fair Dynamic Standing Balance Ability Poor Device Used None Balance Tests Eason Balance Test Eason Balance Test Score 46/56 Eason Impairment Rating 1 to 19% Impaired (Score 45-55 ) Eason Balance Assessment Evaluation Sitting to Standing Ability Independent w/out Hands Unsupported Stance Safely- 2 minutes Sitting Unsupported, Feet on Floor Safely- 2 minutes Standing to Sitting Ability Safely, Minimal Hand Use Transfer Ability Safely, Minimal Hand Use Unsupported Stance- Eyes Closed Safely, 10 seconds Unsupported Stance- Eyes Open Independent, 1 minute Reaching Forward Standing Safely, 5 inches Pick- Up Object From Floor Independent/Safe Look Behind Shoulder - Standing Shifts Weight Unilateral Turning 360 Degrees Turns slowly, but safely Unsupported Stance, Alternating Feet on (I)- 8 Steps in > 20 secs Stair Unsupported Tandem Stance Small Step- 30 seconds Unilateral Leg Stance Lifts Leg/Unable to Hold Total Score Eason Total Score (out of 56 points) 46 Eason Impairment Rating 1 to 19% Impaired (Score 45-55 ) Villalobos Fall Scale Copyright Permission PT-OP-E Functional Tests Start: 04/24/23 17:22 Freq: Status: Active Protocol: Document 04/24/23 16:35 DCW (Rec: 04/24/23 17:34 DCW [id number]) Functional Tests Dynamic Gait Index (DGI) Score 16/24 DGI Impairment Rating 20 to <40% Impaired (Score 15- 19) Timed Up and Go (TUG) Score 14.27 Comments Three-trial average (15.46, 14 .02, 13.32) PT-OP-M Strength Start: 04/24/23 17:22 Freq: Status: Active Protocol: Document 04/24/23 16:35 DCW (Rec: 04/24/23 17:34 DCW [id number]) Hip Strength Hip Manual Muscle Testing Right Flexion (L2) 4- Good- Abduction 4- Good- Adduction 4- Good- Left Flexion (L2) 4- Good- Abduction 4- Good- Adduction 4- Good- Knee Strength Knee Manual Muscle Testing Right Flexion (S2) 4+ Good+ Extension (L3) 4+ Good+ Left Flexion (S2) 4+ Good+ Extension (L3) 4+ Good+ Ankle/Foot Strength Ankle and Foot Manual Muscle Testing Right Dorsiflexion (L4) 4+ Good+ Left Dorsiflexion (L4) 4+ Good+ PT-OP-Q Treatments Start: 04/24/23 17:22 Freq: Status: Active Protocol: Document 05/22/23 09:30 DCW (Rec: 05/22/23 10:16 [facility] [id number]) Gym Equipment Shuttle Balance Red Details WBOS, Staggered, Lateral weight shift Therapeutic Exercises Standing Exercises Hip Abd Side bilateral Resistance Green Reps/Minutes x20 Hip Ext Side bilateral Resistance Green Reps/Minutes x20 Neuro Re-Education Treatment Balance Activities BOSU Details BOSU Lunge SLS Details SLS Equipment // bars Hallway Ambulation Details Headturns, retro ambulation Comments Metronome 90 bpm Hurdles Details Hurdles/Foam Comments Fwd, Side-stepping PT-OP-T Assessment and Plan Start: 04/24/23 17:22 Freq: Status: Active Protocol: Document 05/22/23 09:30 DCW (Rec: 05/22/23 10:16 DC [id number]) Physical Therapy Assessment Goals Two Impairment DGI score (24) places pt into a high falls-risk category Half-Way Goal (LTG) Pt to improve DGI score by at least 4 points to 20/24 in order to demonstrate a decrease in falls risk LTG Duration 07/03/23 One Impairment Pt does not have an appropriate home exercise program Short Term Goal (STG) Pt to be independent and compliant with an appropriate HEP *05/10/23- Hip Abd/Hip Ext STG Duration 05/25/23 Assessment Summary Assessment Pt showing some improvement with dynamic stability, does show increased anxiety with more intense balance challenges, minimal willingness to let go with UEs for shuttle balance and SLS. Physical Therapy Plan Frequency and Duration Frequency of Treatment 2x/Week Plan of Care Start Date 04/24/23 Plan of Care End Date 07/03/23 Therapeutic Interventions Therapeutic Interventions Balance Training,Home Exercise Program,Manual Therapy, Neuromuscular Re-education, Patient/Caregiver Education, Self-Care/Home Management,Soft Tissue Mobilization, Therapeutic Activities, Therapeutic Exercises, Vestibular Rehabilitation Next Visit Focus/Plan Next Note Type Treatment Note Next Visit Plan Dynamic balance challenges, hip strengthening
--- NOTE | 2023-05-24 13:17 | PT.OTN ---
Current Diagnoses Unsteadiness on feet (05/24/23) Repeated falls (05/24/23) Dizziness and giddiness (05/24/23) Physical Therapy Treatment Note PT-OP-A Visit Information Start: 04/24/23 17:22 Freq: Status: Active Protocol: Document 05/24/23 10:59 SW (Rec: 05/24/23 11:47 SW [id number]) Out-Patient Physical Therapy Visit Information Visit Information Visit Type Treatment Note Visit Start Time 11:00 Visit Stop Time 11:43 Total Visit Minutes 43 Visit Number 6 Number of ELEVATOR CONSTRUCTOR Visits 1 PT-OP-B Current Condition Start: 04/24/23 17:22 Freq: Status: Active Protocol: Document 04/24/23 16:35 DCW (Rec: 04/24/23 17:34 DCW [id number]) Current Condition History of Current Condition Onset Date Two year history Current Complaints Fear of falling, unsteadiness, repeated falls History of Current Condition Pt is an 83 year old female presenting with a two year history of worsening balance and repeated falls. Pt reports that she has not yet transitioned to using any assistive devices, but admits that she uses aaron, rails, and furniture as often as possible when up walking. Pt reports that with her three most recent falls, two were caused by catching her foot on something or trying to step over an object, however her most recent one, she was in an elevator, the doors opened, and I just fell backwards through the air, I don't know what happened. Admits to having a significant, worsening fear of falling. Additionally, her brother was diagnosed with Parkinson's Disease two years ago, and his first symptom was worsening balance, so she is understandably scared of this due to her recent falls. Prior Treatments and Tests Head CT: IMPRESSION: Noncontrast head CT within normal limits for age. per Jorge Arriola M.D. on 03/29 Treatment Goals Patient/Caregiver Goals Decrease fear of falling and improve stability PT-OP-C Subjective Start: 04/24/23 17:22 Freq: Status: Active Protocol: Document 05/24/23 10:59 SW (Rec: 05/24/23 11:47 SW [id number]) OP-PT Subjective Patient Comments Patient Comments Pt reports doing pretty well. Waiting to have assessment for DME until pt knows schedule with family coming into town. PT-OP-D Balance Start: 04/24/23 17:22 Freq: Status: Active Protocol: Document 04/24/23 16:35 DCW (Rec: 04/24/23 17:34 DCW [id number]) OP-PT Balance Assessment Sitting Balance Static Sitting Balance Ability Normal Dynamic Sitting Balance Ability Normal Standing Balance Static Standing Balance Ability Fair Dynamic Standing Balance Ability Poor Device Used None Balance Tests Eason Balance Test Eason Balance Test Score 46/56 Eason Impairment Rating 1 to 19% Impaired (Score 45-55 ) Eason Balance Assessment Evaluation Sitting to Standing Ability Independent w/out Hands Unsupported Stance Safely- 2 minutes Sitting Unsupported, Feet on Floor Safely- 2 minutes Standing to Sitting Ability Safely, Minimal Hand Use Transfer Ability Safely, Minimal Hand Use Unsupported Stance- Eyes Closed Safely, 10 seconds Unsupported Stance- Eyes Open Independent, 1 minute Reaching Forward Standing Safely, 5 inches Pick- Up Object From Floor Independent/Safe Look Behind Shoulder - Standing Shifts Weight Unilateral Turning 360 Degrees Turns slowly, but safely Unsupported Stance, Alternating Feet on (I)- 8 Steps in > 20 secs Stair Unsupported Tandem Stance Small Step- 30 seconds Unilateral Leg Stance Lifts Leg/Unable to Hold Total Score Eason Total Score (out of 56 points) 46 Eason Impairment Rating 1 to 19% Impaired (Score 45-55 ) Villalobos Fall Scale Copyright Permission PT-OP-E Functional Tests Start: 04/24/23 17:22 Freq: Status: Active Protocol: Document 04/24/23 16:35 DCW (Rec: 04/24/23 17:34 DCW [id number]) Functional Tests Dynamic Gait Index (DGI) Score 16/24 DGI Impairment Rating 20 to <40% Impaired (Score 15- 19) Timed Up and Go (TUG) Score 14.27 Comments Three-trial average (15.46, 14 .02, 13.32) PT-OP-M Strength Start: 04/24/23 17:22 Freq: Status: Active Protocol: Document 04/24/23 16:35 DCW (Rec: 04/24/23 17:34 DCW [id number]) Hip Strength Hip Manual Muscle Testing Right Flexion (L2) 4- Good- Abduction 4- Good- Adduction 4- Good- Left Flexion (L2) 4- Good- Abduction 4- Good- Adduction 4- Good- Knee Strength Knee Manual Muscle Testing Right Flexion (S2) 4+ Good+ Extension (L3) 4+ Good+ Left Flexion (S2) 4+ Good+ Extension (L3) 4+ Good+ Ankle/Foot Strength Ankle and Foot Manual Muscle Testing Right Dorsiflexion (L4) 4+ Good+ Left Dorsiflexion (L4) 4+ Good+ PT-OP-Q Treatments Start: 04/24/23 17:22 Freq: Status: Active Protocol: Document 05/24/23 10:59 (Rec: 05/24/23 11:47 [id number]) Cardio Equipment Recumbent Elliptical (Biodex) Duration (Minutes) 5 Resistance 4 Seat Position 10 Gym Equipment Shuttle Balance Red Details NBOS, Staggered, Lateral weight shift Comments head turns Therapeutic Exercises Standing Exercises Side Stepping Side bilateral Resistance Green TB Equipment Used @ rail Reps/Minutes x 10 ft ea Hip Abd Side bilateral Resistance Green Reps/Minutes x30 ea Hip Ext Side bilateral Resistance Green Reps/Minutes x30 ea Neuro Re-Education Treatment Balance Activities Dynamic Ambulation Details Sudden stops, Sudden turns Surface stable BOSU Details BOSU Lunge SLS Details SLS on Foam Equipment // bars Hallway Ambulation Details Headturns, retro ambulation Comments Metronome 90 bpm Hurdles Details Hurdles/Foam Comments Fwd, Side-stepping PT-OP-T Assessment and Plan Start: 04/24/23 17:22 Freq: Status: Active Protocol: Document 05/24/23 10:59 (Rec: 05/24/23 11:47 [id number]) Physical Therapy Assessment Goals Two Impairment DGI score () places pt into a high falls-risk category Sustainability Coordinator Goal (LTG) Pt to improve DGI score by at least 4 points to 24 in order to demonstrate a decrease in falls risk LTG Duration 07/03/23 One Impairment Pt does not have an appropriate home exercise program Short Term Goal (STG) Pt to be independent and compliant with an appropriate HEP *05/10/23- Hip Abd/Hip Ext STG Duration 05/25/23 Assessment Summary Assessment Continued hip strengthening this session. Progressed balance on shuttle recovery, with addition of dynamic challenge. Added ambulation with sudden turns and stops for dynamic balance challenge, hesitancy with turns, due to fear of falling, improved with repetition but still very challenging for pt. Physical Therapy Plan Frequency and Duration Frequency of Treatment 2x/Week Plan of Care Start Date 04/24/23 Plan of Care End Date 07/03/23 Therapeutic Interventions Therapeutic Interventions Balance Training,Home Exercise Program,Manual Therapy, Neuromuscular Re-education, Patient/Caregiver Education, Self-Care/Home Management,Soft Tissue Mobilization, Therapeutic Activities, Therapeutic Exercises, Vestibular Rehabilitation Next Visit Focus/Plan Next Note Type Treatment Note Next Visit Plan Dynamic balance challenges, hip strengthening
--- NOTE | 2023-06-07 11:46 | PT.OTN ---
Current Diagnoses Unsteadiness on feet (06/07/23) Repeated falls (06/07/23) Dizziness and giddiness (06/07/23) Physical Therapy Treatment Note PT-OP-A Visit Information Start: 04/24/23 17:22 Freq: Status: Active Protocol: Document 06/07/23 11:03 DCW (Rec: 06/07/23 11:45 DCW [id number]) Out-Patient Physical Therapy Visit Information Visit Information Visit Type Treatment Note Visit Start Time 11:03 Visit Stop Time 11:45 Total Visit Minutes 42 Visit Number 7 Number of HEAD BAGGAGE PORTER Visits 0 Evaluation Information Evaluation Date 04/24/23 PT-OP-B Current Condition Start: 04/24/23 17:22 Freq: Status: Active Protocol: Document 04/24/23 16:35 DCW (Rec: 04/24/23 17:34 DCW [id number]) Current Condition History of Current Condition Onset Date Two year history Current Complaints Fear of falling, unsteadiness, repeated falls History of Current Condition Pt is an 83 year old female presenting with a two year history of worsening balance and repeated falls. Pt reports that she has not yet transitioned to using any assistive devices, but admits that she uses aaron, rails, and furniture as often as possible when up walking. Pt reports that with her three most recent falls, two were caused by catching her foot on something or trying to step over an object, however her most recent one, she was in an elevator, the doors opened, and I just fell backwards through the air, I don't know what happened. Admits to having a significant, worsening fear of falling. Additionally, her brother was diagnosed with Parkinson's Disease two years ago, and his first symptom was worsening balance, so she is understandably scared of this due to her recent falls. Prior Treatments and Tests Head CT: IMPRESSION: Noncontrast head CT within normal limits for age. per Jorge Arriola M.D. on 03/29 Treatment Goals Patient/Caregiver Goals Decrease fear of falling and improve stability PT-OP-C Subjective Start: 04/24/23 17:22 Freq: Status: Active Protocol: Document 06/07/23 11:03 DCW (Rec: 06/07/23 11:45 DCW [id number]) OP-PT Subjective Patient Comments Patient Comments I really just haven't seen any improvement. I've learned to be more careful and more aware of what I need to do to keep my balance. PT-OP-D Balance Start: 04/24/23 17:22 Freq: Status: Active Protocol: Document 04/24/23 16:35 DCW (Rec: 04/24/23 17:34 DCW [id number]) OP-PT Balance Assessment Sitting Balance Static Sitting Balance Ability Normal Dynamic Sitting Balance Ability Normal Standing Balance Static Standing Balance Ability Fair Dynamic Standing Balance Ability Poor Device Used None Balance Tests Eason Balance Test Eason Balance Test Score 46/56 Eason Impairment Rating 1 to 19% Impaired (Score 45-55 ) Eason Balance Assessment Evaluation Sitting to Standing Ability Independent w/out Hands Unsupported Stance Safely- 2 minutes Sitting Unsupported, Feet on Floor Safely- 2 minutes Standing to Sitting Ability Safely, Minimal Hand Use Transfer Ability Safely, Minimal Hand Use Unsupported Stance- Eyes Closed Safely, 10 seconds Unsupported Stance- Eyes Open Independent, 1 minute Reaching Forward Standing Safely, 5 inches Pick- Up Object From Floor Independent/Safe Look Behind Shoulder - Standing Shifts Weight Unilateral Turning 360 Degrees Turns slowly, but safely Unsupported Stance, Alternating Feet on (I)- 8 Steps in > 20 secs Stair Unsupported Tandem Stance Small Step- 30 seconds Unilateral Leg Stance Lifts Leg/Unable to Hold Total Score Eason Total Score (out of 56 points) 46 Eason Impairment Rating 1 to 19% Impaired (Score 45-55 ) Villalobos Fall Scale Copyright Permission PT-OP-E Functional Tests Start: 04/24/23 17:22 Freq: Status: Active Protocol: Document 04/24/23 16:35 DCW (Rec: 04/24/23 17:34 DCW [id number]) Functional Tests Dynamic Gait Index (DGI) Score 16/24 DGI Impairment Rating 20 to <40% Impaired (Score 15- 19) Timed Up and Go (TUG) Score 14.27 Comments Three-trial average (15.46, 14 .02, 13.32) PT-OP-M Strength Start: 04/24/23 17:22 Freq: Status: Active Protocol: Document 04/24/23 16:35 DCW (Rec: 04/24/23 17:34 DCW [id number]) Hip Strength Hip Manual Muscle Testing Right Flexion (L2) 4- Good- Abduction 4- Good- Adduction 4- Good- Left Flexion (L2) 4- Good- Abduction 4- Good- Adduction 4- Good- Knee Strength Knee Manual Muscle Testing Right Flexion (S2) 4+ Good+ Extension (L3) 4+ Good+ Left Flexion (S2) 4+ Good+ Extension (L3) 4+ Good+ Ankle/Foot Strength Ankle and Foot Manual Muscle Testing Right Dorsiflexion (L4) 4+ Good+ Left Dorsiflexion (L4) 4+ Good+ PT-OP-Q Treatments Start: 04/24/23 17:22 Freq: Status: Active Protocol: Document 06/07/23 11:03 DCW (Rec: 06/07/23 11:45 DCW [id number]) Gym Equipment Shuttle Balance Red Details WBOS, Staggered, Lateral weight shift Neuro Re-Education Treatment Balance Activities Hallway Ambulation Details Headturns, retro ambulation Comments Metronome 90 bpm Hurdles Details Hurdles/Foam on uneven pad Comments Fwd, Side-stepping Tandem Details Tandem Ambulation PT-OP-T Assessment and Plan Start: 04/24/23 17:22 Freq: Status: Active Protocol: Document 06/07/23 11:03 DCW (Rec: 06/07/23 11:45 DCW [id number]) Physical Therapy Assessment Goals Two Impairment DGI score (16/24) places pt into a high falls-risk category Group Home Goal (LTG) Pt to improve DGI score by at least 4 points to 20/24 in order to demonstrate a decrease in falls risk LTG Duration 07/03/23 One Impairment Pt does not have an appropriate home exercise program Short Term Goal (STG) Pt to be independent and compliant with an appropriate HEP *05/10/23- Hip Abd/Hip Ext STG Duration 05/25/23 Assessment Summary Assessment Pt struggled with increased instability during foam/lizbeth activities due to unstable blue pad under pathway. Is showing some improvement with head turns during ambulation, increased overall confidence in her balance. Physical Therapy Plan Frequency and Duration Frequency of Treatment 2x/Week Plan of Care Start Date 04/24/23 Plan of Care End Date 07/03/23 Therapeutic Interventions Therapeutic Interventions Balance Training,Home Exercise Program,Manual Therapy, Neuromuscular Re-education, Patient/Caregiver Education, Self-Care/Home Management,Soft Tissue Mobilization, Therapeutic Activities, Therapeutic Exercises, Vestibular Rehabilitation Next Visit Focus/Plan Next Note Type Treatment Note Next Visit Plan Dynamic balance challenges, hip strengthening
--- NOTE | 2023-06-27 11:43 | PT.OTN ---
Current Diagnoses Unsteadiness on feet (06/27/23) Repeated falls (06/27/23) Dizziness and giddiness (06/27/23) Physical Therapy Treatment Note PT-OP-A Visit Information Start: 04/24/23 17:22 Freq: Status: Active Protocol: Document 06/27/23 11:00 DCW (Rec: 06/27/23 11:43 DCW [id number]) Out-Patient Physical Therapy Visit Information Visit Information Visit Type Progress Note Visit Start Time 11:00 Visit Stop Time 11:45 Total Visit Minutes 45 Visit Number 8 Number of DIRECTOR OF ROOMS Visits 0 Evaluation Information Evaluation Date 04/24/23 PT-OP-B Current Condition Start: 04/24/23 17:22 Freq: Status: Active Protocol: Document 04/24/23 16:35 DCW (Rec: 04/24/23 17:34 DCW [id number]) Current Condition History of Current Condition Onset Date Two year history Current Complaints Fear of falling, unsteadiness, repeated falls History of Current Condition Pt is an 83 year old female presenting with a two year history of worsening balance and repeated falls. Pt reports that she has not yet transitioned to using any assistive devices, but admits that she uses aaron, rails, and furniture as often as possible when up walking. Pt reports that with her three most recent falls, two were caused by catching her foot on something or trying to step over an object, however her most recent one, she was in an elevator, the doors opened, and I just fell backwards through the air, I don't know what happened. Admits to having a significant, worsening fear of falling. Additionally, her brother was diagnosed with Parkinson's Disease two years ago, and his first symptom was worsening balance, so she is understandably scared of this due to her recent falls. Prior Treatments and Tests Head CT: IMPRESSION: Noncontrast head CT within normal limits for age. per Jorge Arriola M.D. on 03/29 Treatment Goals Patient/Caregiver Goals Decrease fear of falling and improve stability PT-OP-C Subjective Start: 04/24/23 17:22 Freq: Status: Active Protocol: Document 06/27/23 11:00 DCW (Rec: 06/27/23 11:43 DCW [id number]) OP-PT Subjective Patient Comments Patient Comments Pt admits she still doesn't feel any more confident in her balance. Has started to do more activities, including aquatic balanc eand strengthening classes. PT-OP-D Balance Start: 04/24/23 17:22 Freq: Status: Active Protocol: Document 06/27/23 11:00 DCW (Rec: 06/27/23 11:28 DCW [id number]) OP-PT Balance Assessment Sitting Balance Static Sitting Balance Ability Normal Dynamic Sitting Balance Ability Normal Standing Balance Static Standing Balance Ability Good Dynamic Standing Balance Ability Good Device Used None Balance Tests Eason Balance Test Eason Balance Test Score 48/56 Eason Impairment Rating 1 to 19% Impaired (Score 45-55 ) Eason Balance Assessment Evaluation Sitting to Standing Ability Independent w/out Hands Unsupported Stance Safely- 2 minutes Sitting Unsupported, Feet on Floor Safely- 2 minutes Standing to Sitting Ability Safely, Minimal Hand Use Transfer Ability Safely, Minimal Hand Use Unsupported Stance- Eyes Closed Safely, 10 seconds Unsupported Stance- Eyes Open Independent, 1 minute Reaching Forward Standing Safely, 5 inches Pick- Up Object From Floor Independent/Safe Look Behind Shoulder - Standing Shifts Weight Unilateral Turning 360 Degrees Turns slowly, but safely Unsupported Stance, Alternating Feet on (I)- 8 Steps in > 20 secs Stair Unsupported Tandem Stance Holds Tandem- 30 seconds Unilateral Leg Stance Lifts Leg/Holds > 3 secs Total Score Eason Total Score (out of 56 points) 48 Eason Impairment Rating 1 to 19% Impaired (Score 45-55 ) Villalobos Fall Scale Copyright Permission PT-OP-E Functional Tests Start: 04/24/23 17:22 Freq: Status: Active Protocol: Document 06/27/23 11:00 DCW (Rec: 06/27/23 11:28 DCW [id number]) Functional Tests Dynamic Gait Index (DGI) Score 2024 DGI Impairment Rating 1 to <20% Impaired (Score 20- 23) Timed Up and Go (TUG) Score 11.73 Comments Three-trial average (11.92, 11 .53, 11.75) PT-OP-M Strength Start: 04/24/23 17:22 Freq: Status: Active Protocol: Document 04/24/23 16:35 DCW (Rec: 04/24/23 17:34 DCW [id number]) Hip Strength Hip Manual Muscle Testing Right Flexion (L2) 4- Good- Abduction 4- Good- Adduction 4- Good- Left Flexion (L2) 4- Good- Abduction 4- Good- Adduction 4- Good- Knee Strength Knee Manual Muscle Testing Right Flexion (S2) 4+ Good+ Extension (L3) 4+ Good+ Left Flexion (S2) 4+ Good+ Extension (L3) 4+ Good+ Ankle/Foot Strength Ankle and Foot Manual Muscle Testing Right Dorsiflexion (L4) 4+ Good+ Left Dorsiflexion (L4) 4+ Good+ PT-OP-Q Treatments Start: 04/24/23 17:22 Freq: Status: Active Protocol: Document 06/27/23 11:00 DCW (Rec: 06/27/23 11:43 DCW [id number]) Gym Equipment Shuttle Balance Red Details WBOS, Staggered, Lateral weight shift PT-OP-T Assessment and Plan Start: 04/24/23 17:22 Freq: Status: Active Protocol: Document 06/27/23 11:00 DCW (Rec: 06/27/23 11:43 DCW [id number]) Physical Therapy Assessment Goals Two Impairment DGI score () places pt into a high falls-risk category Babbitt Spinner Goal (LTG) Pt to improve DGI score by at least 4 points to in order to demonstrate a decrease in falls risk LTG Duration Met One Impairment Pt does not have an appropriate home exercise program Short Term Goal (STG) Pt to be independent and compliant with an appropriate HEP *05/10/23- Hip Abd/Hip Ext STG Duration 07/28/23 Assessment Summary Assessment Pt still having difficulty with fear of falling and anxiety with balance challenges, despite improvement in all testing areas. Continue to focus on improving strength, balance, and activity tolerance in order to decrease fear of falling. Physical Therapy Plan Frequency and Duration Frequency of Treatment 2x/Week Plan of Care Start Date 06/27/23 Plan of Care End Date 08/27/23 Therapeutic Interventions Therapeutic Interventions Balance Training,Home Exercise Program,Manual Therapy, Neuromuscular Re-education, Patient/Caregiver Education, Self-Care/Home Management,Soft Tissue Mobilization, Therapeutic Activities, Therapeutic Exercises, Vestibular Rehabilitation Next Visit Focus/Plan Next Note Type Treatment Note Next Visit Plan Dynamic balance challenges, hip strengthening
--- NOTE | 2023-07-05 15:22 | PT.OTN ---
Current Diagnoses Unsteadiness on feet (07/05/23) Repeated falls (07/05/23) Dizziness and giddiness (07/05/23) Physical Therapy Treatment Note PT-OP-A Visit Information Start: 04/24/23 17:22 Freq: Status: Active Protocol: Document 07/05/23 14:32 SP (Rec: 07/05/23 16:08 SP [id number]) Out-Patient Physical Therapy Visit Information Visit Information Visit Type Treatment Note Visit Note 09/13 after PN Visit Start Time 14:32 Visit Stop Time 15:22 Total Visit Minutes 50 Visit Number 9 Number of LOG RIDER Visits 1 Evaluation Information Evaluation Date 04/24/23 PT-OP-B Current Condition Start: 04/24/23 17:22 Freq: Status: Active Protocol: Document 04/24/23 16:35 DCW (Rec: 04/24/23 17:34 DCW [id number]) Current Condition History of Current Condition Onset Date Two year history Current Complaints Fear of falling, unsteadiness, repeated falls History of Current Condition Pt is an 83 year old female presenting with a two year history of worsening balance and repeated falls. Pt reports that she has not yet transitioned to using any assistive devices, but admits that she uses aaron, rails, and furniture as often as possible when up walking. Pt reports that with her three most recent falls, two were caused by catching her foot on something or trying to step over an object, however her most recent one, she was in an elevator, the doors opened, and I just fell backwards through the air, I don't know what happened. Admits to having a significant, worsening fear of falling. Additionally, her brother was diagnosed with Parkinson's Disease two years ago, and his first symptom was worsening balance, so she is understandably scared of this due to her recent falls. Prior Treatments and Tests Head CT: IMPRESSION: Noncontrast head CT within normal limits for age. per Jorge Arriola M.D. on 03/29 Treatment Goals Patient/Caregiver Goals Decrease fear of falling and improve stability PT-OP-C Subjective Start: 04/24/23 17:22 Freq: Status: Active Protocol: Document 07/05/23 14:32 SP (Rec: 07/05/23 16:08 SP [id number]) OP-PT Subjective Patient Comments Patient Comments Pt reports she uses small step stool to help her put casserole dish up up on jefferson shelf and carries laundry with 1 hand while use of HR with other hand but if feels off balance asks her to come get the laundry for her. She stated she was at her son' s house to meet a new grandbaby and when walking around home turned quick to R, had a LOB and big arm swing to help recover, didn't fall. She was carrying the grandbaby and headed outside but when got to top of outdoor stairs told her son needed to take the baby and requested to get HRs on both sides for her to manage stairs in the future. PT-OP-D Balance Start: 04/24/23 17:22 Freq: Status: Active Protocol: Document 06/27/23 11:00 DCW (Rec: 06/27/23 11:28 DCW [id number]) OP-PT Balance Assessment Sitting Balance Static Sitting Balance Ability Normal Dynamic Sitting Balance Ability Normal Standing Balance Static Standing Balance Ability Good Dynamic Standing Balance Ability Good Device Used None Balance Tests Eason Balance Test Eason Balance Test Score 48/56 Eason Impairment Rating 1 to 19% Impaired (Score 45-55 ) Eason Balance Assessment Evaluation Sitting to Standing Ability Independent w/out Hands Unsupported Stance Safely- 2 minutes Sitting Unsupported, Feet on Floor Safely- 2 minutes Standing to Sitting Ability Safely, Minimal Hand Use Transfer Ability Safely, Minimal Hand Use Unsupported Stance- Eyes Closed Safely, 10 seconds Unsupported Stance- Eyes Open Independent, 1 minute Reaching Forward Standing Safely, 5 inches Pick- Up Object From Floor Independent/Safe Look Behind Shoulder - Standing Shifts Weight Unilateral Turning 360 Degrees Turns slowly, but safely Unsupported Stance, Alternating Feet on (I)- 8 Steps in > 20 secs Stair Unsupported Tandem Stance Holds Tandem- 30 seconds Unilateral Leg Stance Lifts Leg/Holds > 3 secs Total Score Eason Total Score (out of 56 points) 48 Eason Impairment Rating 1 to 19% Impaired (Score 45-55 ) Villalobos Fall Scale Copyright Permission PT-OP-E Functional Tests Start: 04/24/23 17:22 Freq: Status: Active Protocol: Document 06/27/23 11:00 DCW (Rec: 06/27/23 11:28 DCW [id number]) Functional Tests Dynamic Gait Index (DGI) Score 20/24 DGI Impairment Rating 1 to <20% Impaired (Score 20- 23) Timed Up and Go (TUG) Score 11.73 Comments Three-trial average (11.92, 11 .53, 11.75) PT-OP-M Strength Start: 04/24/23 17:22 Freq: Status: Active Protocol: Document 04/24/23 16:35 DCW (Rec: 04/24/23 17:34 DCW [id number]) Hip Strength Hip Manual Muscle Testing Right Flexion (L2) 4- Good- Abduction 4- Good- Adduction 4- Good- Left Flexion (L2) 4- Good- Abduction 4- Good- Adduction 4- Good- Knee Strength Knee Manual Muscle Testing Right Flexion (S2) 4+ Good+ Extension (L3) 4+ Good+ Left Flexion (S2) 4+ Good+ Extension (L3) 4+ Good+ Ankle/Foot Strength Ankle and Foot Manual Muscle Testing Right Dorsiflexion (L4) 4+ Good+ Left Dorsiflexion (L4) 4+ Good+ PT-OP-Q Treatments Start: 04/24/23 17:22 Freq: Status: Active Protocol: Document 07/05/23 14:32 SP (Rec: 07/05/23 16:08 SP [id number]) Gym Equipment Shuttle Balance Red Details WBOS, Staggered, Lateral weight shift Reps/Duration light to intermittent UE contact rail Sport Cord red Exercise Details fwd,bwd, lateral R and L Cord/Resistance red Reps/Duration 5 reps each direction Comments fwd eccentric stepping most challenging, improved lateral and retro eccentric stepping improved with cues for elongated posturing and core engagement controlled movement . Therapeutic Exercises Standing Exercises squat <> stand c/OH raise Standing Exercise Name squat touch tball on floor <> raise Tball OH, repeat Resistance blue 55cm tball Reps/Minutes x10 Comments good feedback tiring but painfree, cued upright posture into OH raise can wall posture Standing Exercise Name arms anatomical positioning Equipment Used pelvis, shld, head nod/CS retraction neutral can do Reps/Minutes 5 SH x5 Comments cued maintain pelvis on wall as CS retraction- noted rhomboid fac/taller hd Neuro Re-Education Treatment Balance Activities step up/back down Details CG- 10%A descend> CGA Equipment 6step, PRN //bar Reps/Duration 5 reps each LE lead/back down x2 sets Comments improved stability c/ core fac descend retro with cues for slower pacing and softer stepping Uneven Blue pad surface (hill) Details ascend/descend: CG-5%A as need for stability safety Equipment blue mat, 6step, wedges B sides, 3 hurdles (last 2 laps) Reps/Duration multiple laps (5) Comments Improved wt shift fwd, SLS time during opp LE advancement . trail foot caught 1 lizbeth last Hallway Ambulation Details Headturns, retro ambulation Equipment metronome 90 bpm Reps/Duration 50 ft length hallway multiple laps Comments cued elongated posture c/ chin tuck/nod position neutral posture, tends to lean R when HT R, cued for COG between BLEs when walking increase WBOS if needed, improved stability with laps Hurdles Details Hurdles/Foam Equipment //bars PRN Comments Fwd: step to receiprocal stepping PT-OP-T Assessment and Plan Start: 04/24/23 17:22 Freq: Status: Active Protocol: Document 07/05/23 14:32 SP (Rec: 07/05/23 16:08 SP [id number]) Physical Therapy Assessment Goals Two Impairment DGI score () places pt into a high falls-risk category Assisted Goal (LTG) Pt to improve DGI score by at least 4 points to in order to demonstrate a decrease in falls risk LTG Duration Met One Impairment Pt does not have an appropriate home exercise program Short Term Goal (STG) Pt to be independent and compliant with an appropriate HEP *05/10/23- Hip Abd/Hip Ext STG Duration 07/28/23 Assessment Summary Assessment Pt improved elongated posturing and stability with cues for directioning wt shift more forefoot during shuttle balance and sport cord eccentric directioning and increase GRACIELA during head turn dynamic gait, less R lean with R HR. Pt stated would like to improve stability on stairs for allowance to carry laundry up stairs withless use rail and stand on portable step stability put items in high cupboard with less fear falling. Pt was able to ascend /descend uneven incline mat hill c/ no UE support CGA for safety. Physical Therapy Plan Frequency and Duration Frequency of Treatment 2x/Week Plan of Care Start Date 06/27/23 Plan of Care End Date 08/27/23 Therapeutic Interventions Therapeutic Interventions Balance Training,Home Exercise Program,Manual Therapy, Neuromuscular Re-education, Patient/Caregiver Education, Self-Care/Home Management,Soft Tissue Mobilization, Therapeutic Activities, Therapeutic Exercises, Vestibular Rehabilitation Next Visit Focus/Plan Next Note Type Treatment Note Next Visit Plan Continue Step up strengthening , squat <>OH raise, stair mgt. Add side clamshell & ABD for HEP POC: Dynamic balance challenges, hip strengthening
--- NOTE | 2023-07-19 12:43 | PT.OTN ---
Current Diagnoses Unsteadiness on feet (07/19/23) Repeated falls (07/19/23) Dizziness and giddiness (07/19/23) Physical Therapy Treatment Note PT-OP-A Visit Information Start: 04/24/23 17:22 Freq: Status: Active Protocol: Document 07/19/23 12:00 DCW (Rec: 07/19/23 12:43 DCW [id number]) Out-Patient Physical Therapy Visit Information Visit Information Visit Type Treatment Note Visit Start Time 12:00 Visit Stop Time 12:45 Total Visit Minutes 45 Visit Number 10 Number of CANDY STARCH MOLD PRINTER Visits 0 Evaluation Information Evaluation Date 04/24/23 PT-OP-B Current Condition Start: 04/24/23 17:22 Freq: Status: Active Protocol: Document 04/24/23 16:35 DCW (Rec: 04/24/23 17:34 DCW [id number]) Current Condition History of Current Condition Onset Date Two year history Current Complaints Fear of falling, unsteadiness, repeated falls History of Current Condition Pt is an 83 year old female presenting with a two year history of worsening balance and repeated falls. Pt reports that she has not yet transitioned to using any assistive devices, but admits that she uses aaron, rails, and furniture as often as possible when up walking. Pt reports that with her three most recent falls, two were caused by catching her foot on something or trying to step over an object, however her most recent one, she was in an elevator, the doors opened, and I just fell backwards through the air, I don't know what happened. Admits to having a significant, worsening fear of falling. Additionally, her brother was diagnosed with Parkinson's Disease two years ago, and his first symptom was worsening balance, so she is understandably scared of this due to her recent falls. Prior Treatments and Tests Head CT: IMPRESSION: Noncontrast head CT within normal limits for age. per Jorge Arriola M.D. on 03/29 Treatment Goals Patient/Caregiver Goals Decrease fear of falling and improve stability PT-OP-C Subjective Start: 04/24/23 17:22 Freq: Status: Active Protocol: Document 07/19/23 12:00 DCW (Rec: 07/19/23 12:43 DCW [id number]) OP-PT Subjective Patient Comments Patient Comments I'm doing pretty well. Hanging in there. PT-OP-D Balance Start: 04/24/23 17:22 Freq: Status: Active Protocol: Document 06/27/23 11:00 DCW (Rec: 06/27/23 11:28 DCW [id number]) OP-PT Balance Assessment Sitting Balance Static Sitting Balance Ability Normal Dynamic Sitting Balance Ability Normal Standing Balance Static Standing Balance Ability Good Dynamic Standing Balance Ability Good Device Used None Balance Tests Eason Balance Test Eason Balance Test Score 48/56 Eason Impairment Rating 1 to 19% Impaired (Score 45-55 ) Eason Balance Assessment Evaluation Sitting to Standing Ability Independent w/out Hands Unsupported Stance Safely- 2 minutes Sitting Unsupported, Feet on Floor Safely- 2 minutes Standing to Sitting Ability Safely, Minimal Hand Use Transfer Ability Safely, Minimal Hand Use Unsupported Stance- Eyes Closed Safely, 10 seconds Unsupported Stance- Eyes Open Independent, 1 minute Reaching Forward Standing Safely, 5 inches Pick- Up Object From Floor Independent/Safe Look Behind Shoulder - Standing Shifts Weight Unilateral Turning 360 Degrees Turns slowly, but safely Unsupported Stance, Alternating Feet on (I)- 8 Steps in > 20 secs Stair Unsupported Tandem Stance Holds Tandem- 30 seconds Unilateral Leg Stance Lifts Leg/Holds > 3 secs Total Score Eason Total Score (out of 56 points) 48 Eason Impairment Rating 1 to 19% Impaired (Score 45-55 ) Villalobos Fall Scale Copyright Permission PT-OP-E Functional Tests Start: 04/24/23 17:22 Freq: Status: Active Protocol: Document 06/27/23 11:00 DCW (Rec: 06/27/23 11:28 DCW [id number]) Functional Tests Dynamic Gait Index (DGI) Score 2024 DGI Impairment Rating 1 to <20% Impaired (Score 20- 23) Timed Up and Go (TUG) Score 11.73 Comments Three-trial average (11.92, 11 .53, 11.75) PT-OP-M Strength Start: 04/24/23 17:22 Freq: Status: Active Protocol: Document 04/24/23 16:35 DCW (Rec: 04/24/23 17:34 DCW [id number]) Hip Strength Hip Manual Muscle Testing Right Flexion (L2) 4- Good- Abduction 4- Good- Adduction 4- Good- Left Flexion (L2) 4- Good- Abduction 4- Good- Adduction 4- Good- Knee Strength Knee Manual Muscle Testing Right Flexion (S2) 4+ Good+ Extension (L3) 4+ Good+ Left Flexion (S2) 4+ Good+ Extension (L3) 4+ Good+ Ankle/Foot Strength Ankle and Foot Manual Muscle Testing Right Dorsiflexion (L4) 4+ Good+ Left Dorsiflexion (L4) 4+ Good+ PT-OP-Q Treatments Start: 04/24/23 17:22 Freq: Status: Active Protocol: Document 07/19/23 12:00 DCW (Rec: 07/19/23 12:43 [facility] [id number]) Gym Equipment Shuttle Balance Red Details WBOS, Staggered, Lateral weight shift Sport Cord red Exercise Details fwd,bwd, lateral R and L Cord/Resistance red Reps/Duration x3 reps each direction Comments Stepping over three hurdles Therapeutic Exercises Standing Exercises squat <> stand c/OH raise Standing Exercise Name squat touch tball on floor <> raise Tball OH, repeat Resistance blue 55cm tball Reps/Minutes x10 Comments good feedback tiring but painfree, cued upright posture into OH raise can Neuro Re-Education Treatment Balance Activities Uneven Blue pad surface (hill) Details ascend/descend: CG-5%A as need for stability safety Equipment blue mat, 6step, wedges B sides, foam steps Reps/Duration multiple laps (5) BOSU Details BOSU Stance Surface Blue BOSU Comments DL EO/EC PT-OP-T Assessment and Plan Start: 04/24/23 17:22 Freq: Status: Active Protocol: Document 07/19/23 12:00 DCW (Rec: 07/19/23 12:43 [facility] [id number]) Physical Therapy Assessment Impairments Impairments Balance,Functional Activities, Functional Mobility,Strength Goals Two Impairment DGI score () places pt into a high falls-risk category Mcfp Goal (LTG) Pt to improve DGI score by at least 4 points to 24 in order to demonstrate a decrease in falls risk LTG Duration Met One Impairment Pt does not have an appropriate home exercise program Short Term Goal (STG) Pt to be independent and compliant with an appropriate HEP *05/10/23- Hip Abd/Hip Ext STG Duration 07/28/23 Assessment Summary Assessment Pt somewhat fatigued by end of session, but put in very good effort with minimal rest breaks needed, good response to balance challenges. Physical Therapy Plan Frequency and Duration Frequency of Treatment 2x/Week Plan of Care Start Date 06/27/23 Plan of Care End Date 08/27/23 Therapeutic Interventions Therapeutic Interventions Balance Training,Home Exercise Program,Manual Therapy, Neuromuscular Re-education, Patient/Caregiver Education, Self-Care/Home Management,Soft Tissue Mobilization, Therapeutic Activities, Therapeutic Exercises, Vestibular Rehabilitation Next Visit Focus/Plan Next Note Type Treatment Note Next Visit Plan Continue Step up strengthening , squat <>OH raise, stair mgt. Add side clamshell & ABD for HEP POC: Dynamic balance challenges, hip strengthening
--- NOTE | 2023-07-26 12:49 | PT.OTN ---
Current Diagnoses Unsteadiness on feet (07/26/23) Repeated falls (07/26/23) Dizziness and giddiness (07/26/23) Physical Therapy Treatment Note PT-OP-A Visit Information Start: 04/24/23 17:22 Freq: Status: Active Protocol: Document 07/26/23 09:43 SW (Rec: 07/26/23 10:30 SW [id number]) Out-Patient Physical Therapy Visit Information Visit Information Visit Type Treatment Note Visit Start Time 09:45 Visit Stop Time 10:30 Total Visit Minutes 45 Visit Number 11 Number of STEEL DETAILER Visits 1 PT-OP-B Current Condition Start: 04/24/23 17:22 Freq: Status: Active Protocol: Document 04/24/23 16:35 DCW (Rec: 04/24/23 17:34 DCW [id number]) Current Condition History of Current Condition Onset Date Two year history Current Complaints Fear of falling, unsteadiness, repeated falls History of Current Condition Pt is an 83 year old female presenting with a two year history of worsening balance and repeated falls. Pt reports that she has not yet transitioned to using any assistive devices, but admits that she uses aaron, rails, and furniture as often as possible when up walking. Pt reports that with her three most recent falls, two were caused by catching her foot on something or trying to step over an object, however her most recent one, she was in an elevator, the doors opened, and I just fell backwards through the air, I don't know what happened. Admits to having a significant, worsening fear of falling. Additionally, her brother was diagnosed with Parkinson's Disease two years ago, and his first symptom was worsening balance, so she is understandably scared of this due to her recent falls. Prior Treatments and Tests Head CT: IMPRESSION: Noncontrast head CT within normal limits for age. per Jorge Arriola M.D. on 03/29 Treatment Goals Patient/Caregiver Goals Decrease fear of falling and improve stability PT-OP-C Subjective Start: 04/24/23 17:22 Freq: Status: Active Protocol: Document 07/26/23 09:43 SW (Rec: 07/26/23 10:30 SW [id number]) OP-PT Subjective Patient Comments Patient Comments Pt reports down hill balance is most challenging to her, uses for support. Pt reports she has set up her home for safety with DME. PT-OP-D Balance Start: 04/24/23 17:22 Freq: Status: Active Protocol: Document 06/27/23 11:00 DCW (Rec: 06/27/23 11:28 DCW [id number]) OP-PT Balance Assessment Sitting Balance Static Sitting Balance Ability Normal Dynamic Sitting Balance Ability Normal Standing Balance Static Standing Balance Ability Good Dynamic Standing Balance Ability Good Device Used None Balance Tests Eason Balance Test Eason Balance Test Score 48/56 Eason Impairment Rating 1 to 19% Impaired (Score 45-55 ) Eason Balance Assessment Evaluation Sitting to Standing Ability Independent w/out Hands Unsupported Stance Safely- 2 minutes Sitting Unsupported, Feet on Floor Safely- 2 minutes Standing to Sitting Ability Safely, Minimal Hand Use Transfer Ability Safely, Minimal Hand Use Unsupported Stance- Eyes Closed Safely, 10 seconds Unsupported Stance- Eyes Open Independent, 1 minute Reaching Forward Standing Safely, 5 inches Pick- Up Object From Floor Independent/Safe Look Behind Shoulder - Standing Shifts Weight Unilateral Turning 360 Degrees Turns slowly, but safely Unsupported Stance, Alternating Feet on (I)- 8 Steps in > 20 secs Stair Unsupported Tandem Stance Holds Tandem- 30 seconds Unilateral Leg Stance Lifts Leg/Holds > 3 secs Total Score Eason Total Score (out of 56 points) 48 Eason Impairment Rating 1 to 19% Impaired (Score 45-55 ) Villalobos Fall Scale Copyright Permission PT-OP-E Functional Tests Start: 04/24/23 17:22 Freq: Status: Active Protocol: Document 06/27/23 11:00 DCW (Rec: 06/27/23 11:28 DCW [id number]) Functional Tests Dynamic Gait Index (DGI) Score 2024 DGI Impairment Rating 1 to <20% Impaired (Score 20- 23) Timed Up and Go (TUG) Score 11.73 Comments Three-trial average (11.92, 11 .53, 11.75) PT-OP-M Strength Start: 04/24/23 17:22 Freq: Status: Active Protocol: Document 04/24/23 16:35 DCW (Rec: 04/24/23 17:34 DCW [id number]) Hip Strength Hip Manual Muscle Testing Right Flexion (L2) 4- Good- Abduction 4- Good- Adduction 4- Good- Left Flexion (L2) 4- Good- Abduction 4- Good- Adduction 4- Good- Knee Strength Knee Manual Muscle Testing Right Flexion (S2) 4+ Good+ Extension (L3) 4+ Good+ Left Flexion (S2) 4+ Good+ Extension (L3) 4+ Good+ Ankle/Foot Strength Ankle and Foot Manual Muscle Testing Right Dorsiflexion (L4) 4+ Good+ Left Dorsiflexion (L4) 4+ Good+ PT-OP-Q Treatments Start: 04/24/23 17:22 Freq: Status: Active Protocol: Document 07/26/23 09:43 (Rec: 07/26/23 10:30 [id number]) Gym Equipment Shuttle Balance Red Details WBOS, Staggered, Lateral weight shift Sport Cord red Exercise Details fwd,bwd, lateral R and L Cord/Resistance red Reps/Duration x3 reps each direction Comments Stepping over three hurdles Therapeutic Exercises Standing Exercises squat <> stand c/OH raise Standing Exercise Name squat touch tball on floor <> raise Tball OH, repeat Resistance blue 55cm tball Reps/Minutes x10 Comments good feedback tiring but painfree, cued upright posture into OH raise can Neuro Re-Education Treatment Balance Activities Uneven Blue pad surface (hill) Details ascend/descend: CG-5%A as need for stability safety Equipment blue mat, 6step, wedges B sides, foam steps Reps/Duration multiple laps (5) BOSU Details BOSU Stance Surface Blue BOSU Comments DL EO/EC PT-OP-T Assessment and Plan Start: 04/24/23 17:22 Freq: Status: Active Protocol: Document 07/26/23 09:43 (Rec: 07/26/23 10:30 [id number]) Physical Therapy Assessment Goals Two Impairment DGI score () places pt into a high falls-risk category Mcc Goal (LTG) Pt to improve DGI score by at least 4 points to in order to demonstrate a decrease in falls risk LTG Duration Met One Impairment Pt does not have an appropriate home exercise program Short Term Goal (STG) Pt to be independent and compliant with an appropriate HEP *05/10/23- Hip Abd/Hip Ext STG Duration 07/28/23 Assessment Summary Assessment Pt challenged with balance throughout session, minimal fatigue. Hesitancy with uneven surface ambulation d/t fear of falling. Challenged pt with verbal cues to decrease visual feedback during static balance challenges by gazing forward vs at LEs. Physical Therapy Plan Frequency and Duration Frequency of Treatment 2x/Week Plan of Care Start Date 06/27/23 Plan of Care End Date 08/27/23 Therapeutic Interventions Therapeutic Interventions Balance Training,Home Exercise Program,Manual Therapy, Neuromuscular Re-education, Patient/Caregiver Education, Self-Care/Home Management,Soft Tissue Mobilization, Therapeutic Activities, Therapeutic Exercises, Vestibular Rehabilitation Next Visit Focus/Plan Next Note Type Treatment Note Next Visit Plan Continue Step up strengthening , squat <>OH raise, stair mgt. Add side clamshell & ABD for HEP POC: Dynamic balance challenges, hip strengthening
--- NOTE | 2024-04-15 15:52 | PT.OPDS ---
Current Diagnoses Unsteadiness on feet (07/26/23) Repeated falls (07/26/23) Dizziness and giddiness (07/26/23) Visit Care Team Role Provider Type Chad Staton DO Attending Provider Physician Family Provider Primary Care Provider Referring Provider Specialty: Family Practice Address: [address] [place] [address], [id number] Email: [email or web address] Visit Number Visit Number 11 Discharge Summary PT-OP-B Current Condition Start: 04/24/23 17:22 Freq: Status: Active Protocol: Document 04/24/23 16:35 DCW (Rec: 04/24/23 17:34 DCW [id number]) Current Condition History of Current Condition Onset Date Two year history Current Complaints Fear of falling, unsteadiness, repeated falls History of Current Condition Pt is an 83 year old female presenting with a two year history of worsening balance and repeated falls. Pt reports that she has not yet transitioned to using any assistive devices, but admits that she uses aaron, rails, and furniture as often as possible when up walking. Pt reports that with her three most recent falls, two were caused by catching her foot on something or trying to step over an object, however her most recent one, she was in an elevator, the doors opened, and I just fell backwards through the air, I don't know what happened. Admits to having a significant, worsening fear of falling. Additionally, her brother was diagnosed with Parkinson's Disease two years ago, and his first symptom was worsening balance, so she is understandably scared of this due to her recent falls. Prior Treatments and Tests Head CT: IMPRESSION: Noncontrast head CT within normal limits for age. per Jorge Arriola M.D. on 03/29 Treatment Goals Patient/Caregiver Goals Decrease fear of falling and improve stability PT-OP-C Subjective Start: 04/24/23 17:22 Freq: Status: Active Protocol: Document 07/26/23 09:43 SW (Rec: 07/26/23 10:30 SW [id number]) OP-PT Subjective Patient Comments Patient Comments Pt reports down hill balance is most challenging to her, uses for support. Pt reports she has set up her home for safety with DME. PT-OP-D Balance Start: 04/24/23 17:22 Freq: Status: Active Protocol: Document 06/27/23 11:00 DCW (Rec: 06/27/23 11:28 DCW [id number]) OP-PT Balance Assessment Sitting Balance Static Sitting Balance Ability Normal Dynamic Sitting Balance Ability Normal Standing Balance Static Standing Balance Ability Good Dynamic Standing Balance Ability Good Device Used None Balance Tests Eason Balance Test Eason Balance Test Score 48/56 Eason Impairment Rating 1 to 19% Impaired (Score 45-55 ) Eason Balance Assessment Evaluation Sitting to Standing Ability Independent w/out Hands Unsupported Stance Safely- 2 minutes Sitting Unsupported, Feet on Floor Safely- 2 minutes Standing to Sitting Ability Safely, Minimal Hand Use Transfer Ability Safely, Minimal Hand Use Unsupported Stance- Eyes Closed Safely, 10 seconds Unsupported Stance- Eyes Open Independent, 1 minute Reaching Forward Standing Safely, 5 inches Pick- Up Object From Floor Independent/Safe Look Behind Shoulder - Standing Shifts Weight Unilateral Turning 360 Degrees Turns slowly, but safely Unsupported Stance, Alternating Feet on (I)- 8 Steps in > 20 secs Stair Unsupported Tandem Stance Holds Tandem- 30 seconds Unilateral Leg Stance Lifts Leg/Holds > 3 secs Total Score Eason Total Score (out of 56 points) 48 Eason Impairment Rating 1 to 19% Impaired (Score 45-55 ) Villalobos Fall Scale Copyright Permission PT-OP-E Functional Tests Start: 04/24/23 17:22 Freq: Status: Active Protocol: Document 06/27/23 11:00 DCW (Rec: 06/27/23 11:28 DCW [id number]) Functional Tests Dynamic Gait Index (DGI) Score 20/24 DGI Impairment Rating 1 to <20% Impaired (Score 20- 23) Timed Up and Go (TUG) Score 11.73 Comments Three-trial average (11.92, 11 .53, 11.75) PT-OP-M Strength Start: 04/24/23 17:22 Freq: Status: Active Protocol: Document 04/24/23 16:35 DCW (Rec: 04/24/23 17:34 DCW [id number]) Hip Strength Hip Manual Muscle Testing Right Flexion (L2) 4- Good- Abduction 4- Good- Adduction 4- Good- Left Flexion (L2) 4- Good- Abduction 4- Good- Adduction 4- Good- Knee Strength Knee Manual Muscle Testing Right Flexion (S2) 4+ Good+ Extension (L3) 4+ Good+ Left Flexion (S2) 4+ Good+ Extension (L3) 4+ Good+ Ankle/Foot Strength Ankle and Foot Manual Muscle Testing Right Dorsiflexion (L4) 4+ Good+ Left Dorsiflexion (L4) 4+ Good+ PT-OP-T Assessment and Plan Start: 04/24/23 17:22 Freq: Status: Active Protocol: Document 04/15/24 15:52 DC (Rec: 04/15/24 15:52 [facility] [id number]) Physical Therapy Assessment Assessment Summary Assessment Pt has now not been seen in more than eight months, will require a new referral in order to return to skilled therapy. Pt will be discharged at this time. Physical Therapy Plan Discharge Physical Therapy Discharge Reasons No Longer Attending PT
== END 2024-04-18 09:00 | disposition home or self-care (01) ==
LOC: PHYS 09:45
PROVIDERS: Family Provider Family Medicine; PCP Family Medicine; Referring Provider Family Medicine; Visit Provider Family Medicine
DX: R26.81 Unsteadiness on feet (principal); R29.6 Repeated falls; R42 Dizziness and giddiness
CPT/HCPCS: 97110; 97112; 97161

== ENCOUNTER → 2023-08-23 16:38 | Outpatient (CLI) | payer MEDICARE, SELFPAY ==
--- NOTE | 2023-08-23 16:44 | DI.RAD.S_ITS ---
PROCEDURE: XR HIP W PEL IF DONE UNRULY MIN 4V INDICATIONS: eval bilateral hip pain TECHNIQUE: AP pelvis with lateral view(s) of the bilateral hip(s). COMPARISON: None. FINDINGS: Bones: Bilateral moderate hip joint space narrowing and subchondral sclerosis. No marginal osteophytes. Degenerative changes noted in the lower lumbar spine. Surgical clips project over the pubis symphysis Soft tissues: The visualized bowel gas pattern is normal. No suspicious soft tissue calcifications. IMPRESSION: Moderate bilateral hip osteoarthritis Approved by: Lasha Aguilar M.D. on 08/24/2023 at 21:27
== END ==
PROVIDERS: Family Provider Family Medicine; PCP Family Medicine; Referring Provider Family Medicine; Visit Provider Family Medicine
DX: M25.551 Pain in right hip (principal); M25.552 Pain in left hip; M16.0 Bilateral primary osteoarthritis of hip
CPT/HCPCS: 73522

== ENCOUNTER → 2023-10-19 10:44 | Outpatient (CLI) | payer MEDICARE, SELFPAY ==
--- NOTE | 2023-10-19 10:46 | DI.US.S_ITS ---
PROCEDURE: US CAROTID DOPPLER BI INDICATIONS: eval carotid bruit TECHNIQUE: Color and pulse Doppler interrogation was performed of both carotid systems, with image documentation and velocity measurements. COMPARISON: None. FINDINGS: Stenosis calculations are based on SRU (Society of Radiologists in Ultrasound) criteria. Right side: Brachial blood pressure: 121 mm Hg. Common carotid artery peak systolic velocity: 94 cm/sec. Internal carotid artery peak systolic velocity: 93 cm/sec. Internal carotid artery end diastolic velocity: 23 cm/sec. External carotid artery peak systolic velocity: 65 cm/sec. ICA/CCA peak systolic ratio: 1 . Cota scale imaging description: No significant atherosclerotic plaque. Percent internal carotid artery stenosis: Normal . Vertebral artery: Flow direction is antegrade. Left side: Brachial blood pressure: 115 mm Hg. Common carotid artery peak systolic velocity: 89 cm/sec. Internal carotid artery peak systolic velocity: 86 cm/sec. Internal carotid artery end diastolic velocity: 19 cm/sec. External carotid artery peak systolic velocity: 82 cm/sec. ICA/CCA peak systolic ratio: 0.8 . Cota scale imaging description: No significant atherosclerotic plaque Percent internal carotid artery stenosis: Normal . Vertebral artery: Flow direction is antegrade. IMPRESSION: Normal bilateral internal carotid arteries with no significant atherosclerotic plaque. Dictated by: Aura Fulton M.D. on 10/19/2023 at 13:53 Approved by: Aura Fulton M.D. on 10/19/2023 at 13:54
--- NOTE | 2023-10-19 10:48 | DI.RAD.S_ITS ---
PROCEDURE: XR LUMBAR SPINE 2-3V INDICATIONS: low back pain TECHNIQUE: 3 views of the lumbar spine were acquired. COMPARISON: [facility], XR LUMBAR SPINE WITH OBLIQUES, 05/31/2021, 9:50. FINDINGS: Bones: 5 [id number] vertebrae are present. Diffuse osseous demineralization and underpenetration limits sensitivity for subtle nondisplaced fracture. Within these limitations, no definite fracture or traumatic subluxation. Dextroconvex curvature of the lumbar spine with Chinchilla angle of 13 degrees from the superior endplate of L1 to the inferior endplate of L3. Moderate to severe multilevel degenerative changes with osteophytosis, disc height loss and facet arthropathy. No suspicious bony lesions. Soft tissues: Overlying bowel gas pattern is normal. No suspicious soft tissue calcifications. IMPRESSION: 1. Diffuse osseous demineralization and underpenetration limits sensitivity for subtle nondisplaced fracture. Within these limitations, no definite fracture or traumatic subluxation. If clinical symptoms persist, consider cross-sectional imaging for further evaluation. 2. Moderate to severe multilevel degenerative changes of the spine with dextroconvex curvature. Dictated by: Aura Fulton M.D. on 10/19/2023 at 13:29 Approved by: Aura Fulton M.D. on 10/19/2023 at 13:38
== END ==
PROVIDERS: Family Provider Family Medicine; PCP Family Medicine; Referring Provider Nurse Practitioner Family; Visit Provider Nurse Practitioner Family
DX: M47.816 Spondylosis without myelopathy or radiculopathy, lumbar region (principal); M43.9 Deforming dorsopathy, unspecified; R09.89 Other specified symptoms and signs involving the circulatory and respiratory systems; M54.50 Low back pain, unspecified; J02.9 Acute pharyngitis, unspecified
CPT/HCPCS: 0241U; 72100; 93880

== ENCOUNTER → 2023-10-19 13:29 | Outpatient (CLI) | payer MEDICARE, SELFPAY ==
[2023-10-19 14:40] LABS: COVID-19 CEPHEID 4-PLEX PCR POSITIVE (Negative); Influenza A - CEPHEID Flu A NEGATIVE (NEGATIVE); Influenza B - CEPHEID Flu B NEGATIVE (NEGATIVE); Respiratory Syncytial Virus Negative (Negative)
== END ==
PROVIDERS: Family Provider Family Medicine; PCP Family Medicine; Visit Provider Physician Assistant Surgical
DX: J02.9 Acute pharyngitis, unspecified (principal)
CPT/HCPCS: 0241U

== ENCOUNTER → 2023-10-25 10:26 | Outpatient (CLI) | payer MEDICARE, SELFPAY ==
[2023-10-25 11:45] LABS: Alanine Aminotransferase 31 IU/L (<35); Albumin 4.4 g/dL (3.5-5.0); Albumin Globulin Ratio 1.3 (1.0-2.8); Alkaline Phosphatase 86 U/L (38-126); Aspartate Aminotransferase 42 IU/L (14-36); Bilirubin Total 0.6 mg/dL (0.2-1.3); Blood Urea Nitrogen 11 mg/dL (7-17); Calcium 9.5 mg/dL (8.4-10.2); Carbon Dioxide 28 mmol/L (22-32); Chloride 101 mmol/L (98-107); Estimated Glomerular Filt Rate > 60 mL/min (>60); Globulin 3.3 g/dL (1.7-4.1); Glucose 107 mg/dL (80-110); HEMOLYSIS < 15 (0-50); Potassium 3.9 mmol/L (3.4-5.1); Sodium 139 mmol/L (137-145); Total Protein 7.7 g/dL (6.3-8.2)
== END ==
PROVIDERS: Family Provider Family Medicine; PCP Family Medicine; Referring Provider Nurse Practitioner Family; Visit Provider Nurse Practitioner Family
DX: U07.1 COVID-19 (principal); I50.9 Heart failure, unspecified
CPT/HCPCS: 36415; 80053

== ENCOUNTER → 2023-11-17 15:39 | Outpatient (CLI) | payer MEDICARE, SELFPAY ==
--- NOTE | 2023-11-17 15:41 | DI.MRI.S_ITS ---
PROCEDURE: MR LUMBAR SPINE WO CON INDICATIONS: eval lumbar pain TECHNIQUE: Noncontrast sagittal T1 spin echo and T2 fast echo, sagittal STIR, and T2 fast spin echo through the lumbar spine. In cases with scoliosis, additional coronal T2 fast spin echo may be performed. COMPARISON: [facility], MR, MR LUMBAR SPINE WO CON, 06/09/2021, 14:26. FINDINGS: Image quality: Excellent. Alignment and Curvature: Dextroscoliotic curvature of the lumbar spine. Right lateral listhesis of L3 on L4. Minimal retrolisthesis of L1 on L2 and L2 on L3. Bone Marrow: Multilevel degenerative endplate changes. This is most pronounced L3-L4, Modic type 1. Marrow is of normal overall signal. No acute vertebral body compression fractures. Spinal Cord: Conus medullaris terminates at the L1 level. Visualized cord demonstrates normal signal and size. Paraspinous Soft Tissues: No paravertebral masses. T12-L1: Disc desiccation. No central canal or neural foraminal stenosis. L1-L2: Disc desiccation height loss. Mild diffuse disc bulge. No central canal or neural foraminal stenosis. L2-L3: Disc desiccation and height loss. Mild diffuse disc bulge. No central canal stenosis. Mild left greater than right neural foraminal stenosis is stable. L3-L4: Disc desiccation height loss. Diffuse disc bulge asymmetric to the right narrowing the right lateral recess. Facet arthropathy and thickening of ligamentum flavum. Mild central canal stenosis stable. Moderate bilateral neural foraminal stenosis is stable. L4-L5: Disc desiccation height loss. Diffuse disc bulge. Facet arthropathy and thickening of ligamentum flavum. No significant central canal stenosis. Stable mild bilateral neural foraminal stenosis. L5-S1: Disc desiccation. Facet arthropathy. No central canal or neural foraminal stenosis. IMPRESSION: 1. Multilevel degenerative changes of the lumbar spine are overall similar in appearance compared to prior exam. 2. No significant central canal stenosis. 3. Moderate bilateral neural foraminal stenosis at L3-L4. Mild neural foraminal stenosis at other levels as described above. Dictated by: Rodney Vora M.D. on 11/17/2023 at 17:07 Approved by: Rodney Vora M.D. on 11/17/2023 at 17:14
== END ==
LOC: MRI 15:40
PROVIDERS: Family Provider Family Medicine; PCP Family Medicine; Referring Provider Family Medicine; Visit Provider Family Medicine
DX: M47.816 Spondylosis without myelopathy or radiculopathy, lumbar region (principal); M47.817 Spondylosis without myelopathy or radiculopathy, lumbosacral region; M48.061 Spinal stenosis, lumbar region without neurogenic claudication
CPT/HCPCS: 72148

== ENCOUNTER 2024-03-12 15:21 | Outpatient (CLI) | payer MEDICARE, SELFPAY ==
[2024-03-12] VITALS (8 sets, daily range): BP systolic 113–147; BP diastolic 58–81; PULSE 72–80; RESP 16–23; TEMP 37; O2SAT 94–97
--- NOTE | 2024-03-12 16:00 | DI.RAD.S_ITS ---
PROCEDURE: PAIN L/SI FACET INJ/BLK 1STL INDICATIONS: Right L4, L5 and S1 MBB LA COMPARISON: None. FINDINGS: Fluoroscopic spot filming was performed to verify placement of spinal needles at the L4 through S1 level(s), as labeled on the films. Appropriate location(s) of the needle tip(s) was confirmed by injection of iodinated contrast. IMPRESSION: Contrast a needle placement overlying labeled right L4 through S1. Dictated by: Teresa Brooke M.D. on 03/12/2024 at 22:47 Approved by: Teresa Brooke M.D. on 03/12/2024 at 22:47
[2024-03-12] MEDS: MIDAZOLAM 2 MG/2 ML VIAL 1 MG IV ×2 (16:02→16:06)
[2024-03-12] MEDS: iopamidoL 15 ML VIAL 3 ML INJ (16:04)
[2024-03-12] MEDS: BUPIVACAINE 0.5% (PF) 10 ML VIAL 2 ML INJ (16:04)
--- NOTE | 2024-03-12 16:22 | PM.PROC.IR.1 ---
Date/Time/Diagnoses Date of procedure: 03/12/24 Time of procedure: 16:23 Pre-procedure diagnosis: 1. FACET ARTHROPATHY Post-procedure diagnosis: same Procedure Notes Procedure: 1. Right L4, L5 and S1 MB BLOCKS LA Indications: Connie is referred by Dr. Staton for treatment of Right Axial LBP. Physician: Donnell Logan Total Fluoroscopy time (seconds): 8 Total sedation minutes: 11 Complications: none Procedure in detail & Post-procedure care: DESCRIPTION OF PROCEDURE Fluoroscopically guided, contrast-controlled right L4, L5 and S1 medial branch blocks with 0.5cc of 0.5% Marcaine. Following review of allergy and review of potential side effects and complications, including, but not necessarily limited to, infection, allergic reaction, local tissue breakdown, nerve injury, paralysis, stroke and possible , the patient indicated that the patient understood and agreed to proceed. An informed consent document was signed by the patient, witnessed by a nurse, and placed in the patient's chart. After review of previous anaesthesic history and IV conscious sedation the patient was deemed safe to proceed with today?s procedure with IV conscious sedation as ASA class II designation. Safety time-out was performed to confirm patient ID, procedure to be performed and site of procedure. IV sedation was accomplished with a combination of 2mg of Versed was administered by the RN after DO order, titrated to patient comfort during the course of the procedure while the patient remained responsive to all verbal commands In the prone position, following sterile prep and drape of the lumbar region, the right L4, L5 and S1 anatomical location of the medial branch of the dorsal ramus was identified fluoroscopically. Subsequently an anesthetic skin wheal using 1% lidocaine solution was initiated at each of the anatomical spots. Subsequently then a 22-gauge 3.5-inch spinal needle was atraumatically introduced and advanced under fluoroscopic guidance at each of the corresponding sites at the right L4, L5 and S1 MB. After negative aspiration, 0.2 cc of Isovue 200 was injected, confirming placement without vascular or intrathecal uptake. Subsequently then 0.5 cc of 0.5% Marcaine solution was injected at each of the corresponding sites at the right L4, L5 and S1 medial branch locations. The patient tolerated the procedure well without signs or symptoms of complications. The procedure tolerated the procedure well without signs or symptoms of complications prior to transfer to the recovery area continued monitoring without incident. Post-procedure, the patient was monitored initiating provocative activities to measure the amount of relief from block of the facetogenic pain. The patient reported a VAS of 7 prior to the procedure and a post-procedure VAS of 1. It has been a pleasure to assist in the diagnostic and therapeutic care of your patient. POST OP INSTRUCTIONS The patient was provided with a Pain Log to complete over the next several hours and subsequent days prior to the patient's follow up with the ordering physician. If the patient has digitizer operator relief to the solution applied, then they may be a candidate for medial branch rhizotomy. The patient is aware, was provided, once again, with a Pain Log and will follow up with the referring physician for review and clinical correlation.
== END 2024-03-12 16:44 | disposition home or self-care (01) ==
LOC: RAD 15:22
PROVIDERS: Family Provider Family Medicine; PCP Family Medicine; Referring Provider Physical Medicine & Rehabilitation; Visit Provider Physical Medicine & Rehabilitation
DX: M47.816 Spondylosis without myelopathy or radiculopathy, lumbar region (principal); M47.817 Spondylosis without myelopathy or radiculopathy, lumbosacral region
CPT/HCPCS: 64493; 64494; 99152; J2250

== ENCOUNTER → 2024-05-31 15:32 | Outpatient (CLI) | payer MEDICARE, SELFPAY ==
--- NOTE | 2024-05-31 15:33 | DI.MG.S_ITS ---
BILATERAL DIGITAL SCREENING MAMMOGRAM 3D/2D WITH CAD: 05/31/2024 CLINICAL: Routine screening. Comparison is made to exams dated: 05/25/2023 mammogram, 05/17/2022 mammogram, 05/05/2021 mammogram, 03/21/2020 mammogram, and 03/14/2019 mammogram - [facility]. The breasts are heterogeneously dense, which may obscure small masses (category c / 51-75% glandular tissue). Current study was also evaluated with a Computer Aided Detection (CAD) system. No significant masses, calcifications, or other findings are seen in either breast. There has been no significant interval change. IMPRESSION: NEGATIVE There is no mammographic evidence of malignancy. A 1 year screening mammogram is recommended. Based on the Tyrer Cuzick model (a risk assessment model) the patient's lifetime risk is 0.6% and her 10 year risk is 0.0%. According to the ACR, ACS, and NCCN guidelines, an annual breast MRI exam along with mammogram is recommended if the patient's lifetime risk is 20% or greater. This exam was interpreted at Station ID: [id number]. NOTE: For mammograms, a report in lay terms will be sent to the patient. Approximately 15% of breast malignancies will not be visualized mammographically. In the management of a palpable breast mass, a negative mammogram must not discourage biopsy of a clinically suspicious lesion. Electronically Signed By: Carissa Hilton M.D., Ph.D. leighton/alexis:06/04/2024 00:23:18 letter sent: Normal Exam ACR BI-RADS Category 1: Negative
== END ==
PROVIDERS: Family Provider Family Medicine; PCP Family Medicine; Referring Provider Family Medicine; Visit Provider Family Medicine
DX: Z12.31 Encounter for screening mammogram for malignant neoplasm of breast (principal); R92.333 Mammographic heterogeneous density, bilateral breasts
CPT/HCPCS: 77063; 77067

== ENCOUNTER 2024-08-13 12:19 | Outpatient (CLI) | payer MEDICARE, SELFPAY ==
[2024-08-13] VITALS (7 sets, daily range): BP systolic 123–164; BP diastolic 62–78; PULSE 73–83; RESP 14–20; TEMP 36.6; O2SAT 95–99
--- NOTE | 2024-08-13 12:24 | DI.RAD.S_ITS ---
PROCEDURE: PAIN L/SI FACET INJ/BLK 1STL INDICATIONS: LUMBAR ARTHROPATHY COMPARISON: [facility], , PAIN L/SI FACET INJ/BLK 1STL, 03/12/2024, 16:03. FINDINGS/IMPRESSION: Fluoroscopic spot filming was performed to verify placement of spinal needles at the right L3-L5 level(s), as labeled on the films. Appropriate location(s) of the needle tip(s) was confirmed by injection of iodinated contrast. Dictated by: Jaycee Power M.D. on 08/13/2024 at 16:43 Approved by: Jaycee Power M.D. on 08/13/2024 at 16:43
[2024-08-13] MEDS: MIDAZOLAM 2 MG/2 ML VIAL IV (14:40)
[2024-08-13] MEDS: LIDOCAINE 2% INJ SDV 5ML 1 ML INJ (14:47)
[2024-08-13] MEDS: iopamidoL 15 ML VIAL 3 ML INJ (14:48)
--- NOTE | 2024-08-13 14:57 | P.PCN_ITS ---
Date/Time/Diagnoses Date of procedure: 08/13/24 Time of procedure: 14:57 Pre-procedure diagnosis: Lumbar Facet Arthropathy Post-procedure diagnosis: same Procedure Notes Procedure: 1. Right L4, L5 and S1 MB BLOCKS SA Indications: Connie is referred by Dr. Staton for treatment of Right Axial LBP. Physician: Donnell Logan Total Fluoroscopy time (seconds): 5 Total sedation minutes: 10 Complications: none Procedure in detail & Post-procedure care: DESCRIPTION OF PROCEDURE Fluoroscopically guided, contrast-controlled right L4, L5 and S1 medial branch blocks with 0.5cc of 2% Lidocaine. Following review of allergy and review of potential side effects and complications, including, but not necessarily limited to, infection, allergic reaction, local tissue breakdown, nerve injury, paralysis, stroke and possible , the patient indicated that the patient understood and agreed to proceed. An informed consent document was signed by the patient, witnessed by a nurse, and placed in the patient's chart. After review of previous anaesthesic history and IV conscious sedation the patient was deemed safe to proceed with today?s procedure with IV conscious sedation as ASA class II designation. Safety time-out was performed to confirm patient ID, procedure to be performed and site of procedure. IV sedation was accomplished with a combination of 2mg of Versed was administered by the RN after DO order, titrated to patient comfort during the course of the procedure while the patient remained responsive to all verbal commands In the prone position, following sterile prep and drape of the lumbar region, the right L4, L5 and S1 anatomical location of the medial branch of the dorsal ramus was identified fluoroscopically. Subsequently an anesthetic skin wheal using 1% lidocaine solution was initiated at each of the anatomical spots. Subsequently then a 22-gauge 3.5-inch spinal needle was atraumatically introduced and advanced under fluoroscopic guidance at each of the corresponding sites at the right L4, L5 and S1 MB. After negative aspiration, 0.2 cc of Isovue 200 was injected, confirming placement without vascular or intrathecal uptake. Subsequently then 0.5 cc of 2% Lidocaine solution was injected at each of the corresponding sites at the right L4, L5 and S1 medial branch locations. The patient tolerated the procedure well without signs or symptoms of complications. The procedure tolerated the procedure well without signs or symptoms of complications prior to transfer to the recovery area continued monitoring without incident. Post-procedure, the patient was monitored initiating provocative activities to measure the amount of relief from block of the facetogenic pain. The patient reported a VAS of 7 prior to the procedure and a post-procedure VAS of 1. It has been a pleasure to assist in the diagnostic and therapeutic care of your patient. POST OP INSTRUCTIONS The patient was provided with a Pain Log to complete over the next several hours and subsequent days prior to the patient's follow up with the ordering physician. If the patient has curling machine operator relief to the solution applied, then they may be a candidate for medial branch rhizotomy. The patient is aware, was provided, once again, with a Pain Log and will follow up with the referring physician for review and clinical correlation.
== END 2024-08-13 15:10 | disposition home or self-care (01) ==
LOC: RAD 12:23
PROVIDERS: Family Provider Family Medicine; PCP Family Medicine; Referring Provider Physical Medicine & Rehabilitation; Visit Provider Physical Medicine & Rehabilitation
DX: M47.816 Spondylosis without myelopathy or radiculopathy, lumbar region (principal); M47.817 Spondylosis without myelopathy or radiculopathy, lumbosacral region
CPT/HCPCS: 64493; 64494; 64495; 99152; J2250

== ENCOUNTER 2024-10-29 07:22 | Outpatient (CLI) | payer MEDICARE, SELFPAY ==
[2024-10-29] VITALS (11 sets, daily range): BP systolic 130–173; BP diastolic 60–86; PULSE 55–80; RESP 14–19; TEMP 36.9; O2SAT 93–99
--- NOTE | 2024-10-29 07:23 | DI.RAD.S_ITS ---
PROCEDURE: PAIN L/S MED/LAT N RFA INDICATIONS: Right L4, l5 AND s1 mb rfa COMPARISON: None. FINDINGS/IMPRESSION: Fluoroscopic spot filming was performed to verify placement of spinal needles at the right L4 through S1 level(s), as labeled on the films. Appropriate location(s) of the needle tip(s) was confirmed by injection of iodinated contrast. Dictated by: Yariel De Jesus M.D. on 10/29/2024 at 17:12 Approved by: Yariel De Jesus M.D. on 10/29/2024 at 17:12
[2024-10-29] MEDS: MIDAZOLAM 2 MG/2 ML VIAL IV (08:20)
[2024-10-29] MEDS: LIDOCAINE 1% 20 ML 5 ML INJ (08:26)
[2024-10-29] MEDS: BUPIVACAINE 0.5% (PF) 10 ML VIAL 5 ML INJ (08:26)
--- NOTE | 2024-10-29 08:52 | P.PCN_ITS ---
Date/Time/Diagnoses Date of procedure: 10/29/24 Time of procedure: 08:52 Pre-procedure diagnosis: 1. RECALCITRANT FACET ARTHROPATHY Post-procedure diagnosis: same Procedure Notes Procedure: 1. RIGHT L4 AND L5 MEDIAL BRANCH RADIOFREQUENCY NEUROTOMY AND RIGHT S1 DORSAL RAMUS BRANCH RADIOFREQUENCY NEUROTOMY Indications: Connie is referred by Dr. Staton for treatment of facet arthropathy. Physician: Donnell Logan Total Fluoroscopy time (seconds): 11 Total sedation minutes: 27 Complications: none Procedure in detail & Post-procedure care: DESCRIPTION OF PROCEDURE Right L4 and L5 medial branch radiofrequency neurotomy and right S1 dorsal ramus branch radiofrequency neurotomy under fluoroscopy with conscious sedation. The patient is well known to this clinic having undergone previous facet injections with good but temporary relief. The patient has experienced appropriate, concordant relief with previous facet and median branch blocks but the patient's pain has been recalcitrant to further conservative measures. Therefore, based upon the patient's relief and persistent symptoms, the patient is considered an appropriate candidate for facet rhizotomy. All of the patient's questions regarding the risks versus benefits of the procedure, including, but not limited to, bleeding, infection, temporary as well as lasting nerve injury, paralysis, stroke, and , as well treatment alternatives were answered to satisfaction. After review of previous anaesthesic history and IV conscious sedation the patient was deemed safe to proceed with today?s procedure with IV conscious sedation as ASA class II designation. Safety time-out was performed to confirm patient ID, procedure to be performed and site of procedure. IV sedation was accomplished with a combination of 2mg of Versed was administered by the RN after DO order, titrated to patient comfort during the course of the procedure while the patient remained responsive to all verbal commands. After obtaining informed consent, denial of pertinent drug allergies, as well as being made aware of the potential risks of bleeding, infection, spinal cord trauma, paralysis, temporary and permanent nerve damage, seizure, stroke, and possible , the patient was brought to the fluoroscopy suite and positioned prone on the fluoroscopy table. The lumbar region was prepped with Betadine and covered with a fenestrated drape in the usual sterile fashion. Appropriate monitors applied including pulse oximeter, pulse, and blood pressure for regular monitoring throughout the procedure. After local infiltration using 1% lidocaine, under fluoroscopic guidance, a 10- cm RF insulated needle with a 10-mm active tip was positioned parallel to the junction of the right sacral ala and the superior articulating process where the S1 dorsal ramus resides. Needle placement was confirmed with sensory stimulation at 50 Hz, with motor stimulation of .5v on the right which produced local stimulation without radicular component. The stimulation was then increased to 2v with, once again, only local multifidus stimulation without radicular component. This was then followed by two discreet lesions performed at 80 degrees Celsius for 90 seconds each. The needle was then removed and the identical procedure was performed along the length of the right L5 medial branch with motor stimulation at .7v on the right. The identical procedure was once again performed along the length of the right L4 medial branch with motor stimulation of .5v on the right. The patient tolerated the procedure well without signs or symptoms of complications prior to transfer to the recovery area continued monitoring without incident. The patient was then transferred to the recovery area where they were observed for an appropriate period of time after the injection. The patient was then transferred to the recovery area where they were observed for an appropriate period of time after the injection. The patient reported a VAS score of 7 prior to the procedure and a post- procedure VAS of 1. POST OP INSTRUCTIONS The patient was provided a Pain Log to continue to record the patient's response to the target-specific procedure prior to the patient's follow-up visit with the referring physician. Additionally, specific post-injection care instructions and a contact number to our office were provided if concerns arise regarding possible complications associated with the procedure are suspected.
== END 2024-10-29 09:14 | disposition home or self-care (01) ==
PROVIDERS: Family Provider Family Medicine; PCP Family Medicine; Referring Provider Physical Medicine & Rehabilitation; Visit Provider Physical Medicine & Rehabilitation
DX: M47.816 Spondylosis without myelopathy or radiculopathy, lumbar region (principal); M47.817 Spondylosis without myelopathy or radiculopathy, lumbosacral region
CPT/HCPCS: 64635; 64636; 99152; 99153; J2250

== ENCOUNTER → 2024-11-29 09:32 | Outpatient (CLI) | payer MEDICARE, SELFPAY ==
--- NOTE | 2024-11-29 09:34 | DI.RAD.S_ITS ---
PROCEDURE: FL UPPER GI SMALL BOWEL INDICATIONS: eval vomitting COMPARISON: [facility], CT, CT CHEST HIGH RESOLUTION, 08/19/2021, 14:56. FINDINGS: KUB: Preprocedural sign writer hand film shows a normal bowel gas pattern. No suspicious abdominal calcifications. Visualized solid organ contours appear normal in size. No suspicious bony abnormalities. Scoliosis. Esophagus: Air-contrast views demonstrate a normal mucosal pattern. On single-contrast views, there is diminished peristalsis. There is decreased peristaltic stripping. Tertiary contractions are seen. No fixed strictures, extrinsic mass effects, or diverticula. Small sliding-type hiatal hernia. No elicited gastroesophageal reflux. There is transit of a calibrated barium tablet through the esophagus. Transit is within normal limits. Stomach: The gastric lumen is normally distensible, and has normal rugal fold thickness. No mucosal masses or ulcers. The pylorus and duodenal bulb have a normal morphology. Small bowel: Duodenal folds appear normal in thickness. There is normal transit time of barium through the small intestine. Small bowel loops appear normal in caliber throughout. Jejunal and ileal folds are smooth and normal in thickness. No strictures, intraluminal masses, or extrinsic mass effects. The terminal ileum is identified and appears normal. IMPRESSION: Moderate esophageal dysmotility. Small sliding-type hiatal hernia. Gastroesophageal reflux is not elicited. Dictated by: Javier Bruner M.D. on 11/29/2024 at 12:15 Approved by: Javier Bruner M.D. on 11/29/2024 at 12:29
== END ==
PROVIDERS: Family Provider Family Medicine; PCP Family Medicine; Referring Provider Family Medicine; Visit Provider Family Medicine
DX: K22.4 Dyskinesia of esophagus (principal); K44.9 Diaphragmatic hernia without obstruction or gangrene; R11.10 Vomiting, unspecified
CPT/HCPCS: 74240; 74248

== ENCOUNTER → 2025-05-12 16:13 | Outpatient (CLI) | payer MEDICARE, SELFPAY ==
--- NOTE | 2025-05-12 16:15 | DI.US.S_ITS ---
PROCEDURE: US EXTREMITY NONVASC LOWER LT INDICATIONS: US soft tissue Lt posterior knee TECHNIQUE: Real-time scanning was performed of the posterior left knee, with image documentation. Color Doppler was also utilized. COMPARISON: [facility] [place], CR, XR KNEE 4+ VIEWS LEFT, 01/01/2025, 16:53. FINDINGS: A Cruz's cyst is seen. Mild soft tissue irregularity is seen, with apparent mild soft tissue calcification. Note is made of calcification and stenosis of the left lesser saphenous vein. IMPRESSION: No Cruz's cyst seen. Dictated by: Jorge Arriola M.D. on 05/13/2025 at 10:51 Approved by: Jorge Arriola M.D. on 05/13/2025 at 10:52
== END ==
PROVIDERS: Family Provider Family Medicine; PCP Family Medicine; Referring Provider Family Medicine; Visit Provider Family Medicine
DX: M71.22 Synovial cyst of popliteal space [Baker], left knee (principal); M25.562 Pain in left knee; G89.29 Other chronic pain
CPT/HCPCS: 76882

== ENCOUNTER → 2025-06-05 14:48 | Outpatient (CLI) | payer MEDICARE, SELFPAY ==
--- NOTE | 2025-06-05 14:48 | DI.MG.S_ITS ---
MM screening mammo BI: 06/05/2025. BI-RADS: 2 CLINICAL: 85-year old female for bilateral screening mammogram. Tyrer-Cuzick lifetime risk of 0.3%. No personal or first-degree family history of breast cancer. PRIOR EXAMS 05/31/2024, 05/25/2023, 05/17/2022, 05/05/2021. MAMMOGRAPHY TECHNIQUE: 2D and 3D (tomosynthesis) digital mammographic views obtained, with additional images as needed for full coverage. Current study was also evaluated with a Computer Aided Detection (CAD) system. DENSITY C. The breasts are heterogeneously dense, which may obscure small masses. MAMMOGRAPHY FINDINGS Bilateral: Typically-benign vascular calcifications noted. No significant change from comparison. IMPRESSION: * No evidence of malignancy with benign findings. RECOMMENDATIONS Bilateral * Annual screening mammography. OVERALL ASSESSMENT CATEGORY BI-RADS-2: Benign. [employer] recommends annual screening mammography beginning at age 40 for women with average risk of breast cancer. ELECTRONICALLY SIGNED: Carl Carbajal M.D. on 06/06/2025 at 09:53:10 AM PT Interpreting Station ID: [id number]
== END ==
LOC: MAMMO 14:48
PROVIDERS: Family Provider Family Medicine; PCP Family Medicine; Referring Provider Family Medicine; Visit Provider Family Medicine
DX: Z12.31 Encounter for screening mammogram for malignant neoplasm of breast (principal); R92.333 Mammographic heterogeneous density, bilateral breasts
CPT/HCPCS: 77063; 77067

== ENCOUNTER 2025-06-11 08:54 | Outpatient (CLI) | payer MEDICARE, SELFPAY ==
[2025-06-11 09:35] VITALS: BP 160/72; PULSE 76; RESP 16; TEMP 36.6; O2SAT 96
[2025-06-11 09:53] VITALS: BP 145/70; PULSE 72; RESP 15; O2SAT 94
[2025-06-11] MEDS: LIDOCAINE 1% (PF) 5 ML 10 ML INJ (09:58)
[2025-06-11 10:05] VITALS: BP 140/67; PULSE 72; RESP 16; O2SAT 97
--- NOTE | 2025-06-11 10:49 | P.PCN_ITS ---
Date/Time/Diagnoses Date of procedure: 06/11/25 Time of procedure: 09:30 Pre-procedure diagnosis: Sacroiliac joint pain, sacroiliitis, dysfunction Post-procedure diagnosis: same Procedure Notes Procedure: Right sacroiliac joint injection Indications: Sacroiliac joint pain Physician: Jeremie Salgado Total sedation minutes: 0 Complications: none Procedure in detail & Post-procedure care: Patient is here for the planned procedure today as noted. No significant change since the last office visit. For additional clinical scenario please see those office notes. Focused exam: Vital signs reviewed as charted on intake. Gen: Well developed. No acute distress. CV: RRR, no M/R/G Chest: Non-labored breathing, CTAB. Psych: Alert and well-oriented. Mood/Affect: normal. Patient suitable for the planned procedure today: Yes === The following procedure was performed today: Sacroiliac joint injection with fluoroscopic guidance (03195) Approach: Posterior, inferior pole Laterality: Right Soft tissue: [1% lidocaine 1.5 mL] Injectate: [1 mL of methylprednisolone (40mg/mL) in 2.5 mL 1% lidocaine] Fluoroscopy Agent: Isovue 300-M 1 mL Notes: 3.5 in 22 gauge spinal needle utilized and adequate. Preprocedure pain 3/10, postprocedure pain 0/10. Procedure: Informed consent was obtained and all patient questions were answered. After discussing the risks, benefits, and alternatives to the procedure, the patient expressed understanding and wished to proceed. The patient was brought to the procedure suite and placed in the prone position, and prepped and draped in a sterile fashion. A pre-procedural pause was conducted to verify: correct patient identity, procedure to be performed and as applicable, correct side and site, correct patient position, and any special requirements. The fluoroscopic C-arm was positioned for optimal visualization of the targeted sacroiliac (SI) joint. The inferior portion of the SI joint was localized under fluoroscopic visualization and local anesthetic was utilized for soft tissue lo renny anesthesia. A 22 gauge spinal needle was inserted into the fluoroscopically hyperlucent region within the SI joint. Aspiration negative. If noted above, the noted contrast agent was injected and a partial arthrogram was obtained. Multiplanar imaging was performed for confirmation and appropriate images were saved. The steroid/anesthetic solution noted above was then injected into the SI joint. The patient tolerated the procedure well and was discharged after an appropriate period of observation. If there are any complications or concerns, the patient was instructed to call us. The patient is to follow-up with the ordering provider in 2-3 weeks/as planned. This note was compiled using voice recognition software and therefore may contain typos. Please contact the author with any questions or concerns.
== END 2025-06-11 10:10 | disposition home or self-care (01) ==
PROVIDERS: Family Provider Family Medicine; PCP Family Medicine; Referring Provider Physical Medicine & Rehabilitation; Visit Provider Physical Medicine & Rehabilitation
DX: M46.1 Sacroiliitis, not elsewhere classified (principal); M53.3 Sacrococcygeal disorders, not elsewhere classified
CPT/HCPCS: 27096; J1010